=== PATIENT | female | born 1940 | race Caucasian/White ===

== ENCOUNTER → 2016-11-14 | Outpatient (CLI) | payer MEDICARE ==
[~2016-11-14] MED LIST: DENOSUMAB 60 MG/1 ML (PROLIA) CANCER CTR SQ SCH
== END ==
LOC: FS 11:13
PROVIDERS: ATTEND Internal Medicine Hematology & Oncology
DX: C50.511 Malignant neoplasm of lower-outer quadrant of right female breast (principal); D50.9 Iron deficiency anemia, unspecified; M85.89 Other specified disorders of bone density and structure, multiple sites; R29.890 Loss of height; Z17.0 Estrogen receptor positive status [ER+]; Z92.21 Personal history of antineoplastic chemotherapy; Z92.3 Personal history of irradiation; Z79.811 Long term (current) use of aromatase inhibitors
CPT/HCPCS: 96372; 99213

== ENCOUNTER 2017-05-15 10:49 | Outpatient (RCR) | payer MEDICARE ==
[2017-05-15 10:58] LABS: BASOPHILS # (AUTO) 0.1 10^3/uL (0.0-0.1); BASOPHILS % (AUTO) 1 % (0-10); EOSINOPHILS # (AUTO) 0.2 10^3/uL (0.0-0.3); EOSINOPHILS % (AUTO) 3 % (0-10); HEMATOCRIT 44 % (35-52); HEMOGLOBIN 14.6 G/DL (11.5-16.0); LYMPHOCYTES # (AUTO) 1.5 X 10^3 (1.0-4.0); LYMPHOCYTES % (AUTO) 18 % (12-44); MEAN CORPUSCULAR HEMOGLOBIN 29 PG (25-34); MEAN CORPUSCULAR HGB CONC 33 G/DL (32-36); MEAN CORPUSCULAR VOLUME 86 FL (80-99); MONOCYTES # (AUTO) 0.9 X 10^3 (0.0-1.0); MONOCYTES % (AUTO) 11 % (0-12); NEUTROPHILS # (AUTO) 5.4 X 10^3 (1.8-7.8); NEUTROPHILS % (AUTO) 67 % (42-75); PLATELET COUNT 352 10^3/uL (130-400); RED CELL DISTRIBUTION WIDTH 13.8 % (10.0-14.5); WHITE BLOOD COUNT 8.1 10^3/uL (4.3-11.0)
[2017-05-15 11:25] LABS: ALANINE AMINOTRANSFERASE 19 U/L (0-55); ALBUMIN 4.3 GM/DL (3.2-4.5); ALKALINE PHOSPHATASE 79 U/L (40-136); BILIRUBIN,TOTAL 0.6 MG/DL (0.1-1.0); BUN/CREATININE RATIO 19; CALCIUM 10.1 MG/DL (8.5-10.1); CARBON DIOXIDE 30 MMOL/L (21-32); CHLORIDE 98 MMOL/L (98-107); GFR ESTIMATED > 60; GLUCOSE 108 MG/DL (70-105); POTASSIUM 4.2 MMOL/L (3.6-5.0); SODIUM 137 MMOL/L (135-145); TOTAL PROTEIN 7.4 GM/DL (6.4-8.2)
== END 2017-08-13 | disposition home or self-care (01) ==
LOC: ONC 10:49
PROVIDERS: ATTEND Internal Medicine Hematology & Oncology
DX: C50.511 Malignant neoplasm of lower-outer quadrant of right female breast (principal); D50.9 Iron deficiency anemia, unspecified; M85.89 Other specified disorders of bone density and structure, multiple sites; R29.890 Loss of height; Z17.0 Estrogen receptor positive status [ER+]; Z92.21 Personal history of antineoplastic chemotherapy; Z92.3 Personal history of irradiation; Z79.811 Long term (current) use of aromatase inhibitors
CPT/HCPCS: 36415; 80053; 82728; 85025; 96372

== ENCOUNTER 2017-10-11 10:36 | Outpatient (RCR) | payer MEDICARE ==
[2017-10-11 11:16] LABS: BASOPHILS % (AUTO) 1 % (0-10); EOSINOPHILS # (AUTO) 0.2 10^3/uL (0.0-0.3); EOSINOPHILS % (AUTO) 3 % (0-10); HEMATOCRIT 42 % (35-52); HEMOGLOBIN 13.6 G/DL (11.5-16.0); LYMPHOCYTES # (AUTO) 1.2 X 10^3 (1.0-4.0); LYMPHOCYTES % (AUTO) 17 % (12-44); MEAN CORPUSCULAR HEMOGLOBIN 27 PG (25-34); MEAN CORPUSCULAR HGB CONC 32 G/DL (32-36); MEAN CORPUSCULAR VOLUME 83 FL (80-99); MEAN PLATELET VOLUME 9.8 FL (7.4-10.4); MONOCYTES # (AUTO) 0.8 X 10^3 (0.0-1.0); MONOCYTES % (AUTO) 12 % (0-12); NEUTROPHILS # (AUTO) 4.6 X 10^3 (1.8-7.8); NEUTROPHILS % (AUTO) 68 % (42-75); PLATELET COUNT 362 10^3/uL (130-400); RED BLOOD COUNT 5.04 10^6/uL (4.35-5.85); RED CELL DISTRIBUTION WIDTH 15.1 % (10.0-14.5); WHITE BLOOD COUNT 6.8 10^3/uL (4.3-11.0)
[2017-10-11 11:37] LABS: ALBUMIN 4.3 GM/DL (3.2-4.5); BILIRUBIN,TOTAL 0.7 MG/DL (0.1-1.0); CALCIUM 10.3 MG/DL (8.5-10.1); CREATININE SERUM 0.98 MG/DL (0.60-1.30); POTASSIUM 4.1 MMOL/L (3.6-5.0); TOTAL PROTEIN 7.4 GM/DL (6.4-8.2)
[2017-10-17] MEDS ORDERED: DILT120C53 PO (12:48)
[2017-10-17] MEDS ORDERED: METF500T5 PO (12:48)
[2017-10-17] MEDS ORDERED: FLUO20CA42 PO (12:48)
[2017-10-17] MEDS ORDERED: PRAV20TA3 PO (12:48)
[2017-10-17] MEDS ORDERED: BENA40TA5 PO (12:48)
[2017-10-17] MEDS ORDERED: CLON0.1T PO (12:48)
[2017-10-17] MEDS ORDERED: APIX5TAB PO (12:53)
[2017-10-17] MEDS ORDERED: LETR2.5T5 PO (12:53)
[2017-10-17] MEDS ORDERED: MULT-35 PO (12:53)
[2017-10-17] MEDS ORDERED: DENO60DI SQ (12:53)
[2017-10-17] MEDS ORDERED: CALC600T12 PO (12:53)
[2017-10-17] MEDS ORDERED: LORA10TA76 PO (12:53)
[2017-10-17] MEDS ORDERED: CHOL10007 PO (12:53)
[2017-10-17] MEDS ORDERED: RT-ALBUINH IH (12:57)
[2017-11-08] MEDS ORDERED: FERRIC CARBOXYMALTOSE (CANCER) 750 MG in NS (IVPB) CANCER CENTER 250 ML IV SCH (08:30)
[2017-11-08] MEDS ORDERED: DENOSUMAB 60 MG/1 ML (PROLIA) CANCER CTR SQ SCH (08:30)
== END 2018-01-09 | disposition home or self-care (01) ==
LOC: ONC 10:36
PROVIDERS: ATTEND Internal Medicine Hematology & Oncology
DX: C50.511 Malignant neoplasm of lower-outer quadrant of right female breast (principal); D50.9 Iron deficiency anemia, unspecified; M85.89 Other specified disorders of bone density and structure, multiple sites; I48.91 Unspecified atrial fibrillation; R06.09 Other forms of dyspnea; R29.890 Loss of height; Z17.0 Estrogen receptor positive status [ER+]; Z92.21 Personal history of antineoplastic chemotherapy; Z92.3 Personal history of irradiation; Z79.811 Long term (current) use of aromatase inhibitors
CPT/HCPCS: 36415; 80053; 82728; 85025; 93005; 99213

== ENCOUNTER → 2017-10-11 | Outpatient (CLI) | payer MEDICARE, BC ==
[~2017-10-11] MED LIST changes: +APIX5TAB PO; +BNZ40T PO; +CALC600T12 PO; +CHOL10007 PO; +CLON0.1T PO; +DENO60DI SQ; -DENOSUMAB 60 MG/1 ML (PROLIA) CANCER CTR SQ SCH; +DILT120C53 PO; +FLUO20CA42 PO; +LETR2.5T5 PO; +LORA10TA76 PO; +METF500T5 PO; +MULT-35 PO; +PRAV20TA3 PO; +RT-ALBUINH IH
--- NOTE | 2017-10-11 12:25 | Diagnostic Imaging Report ---
STUDY PERFORMED: Dual energy radiographic absorptiometry (DXA) of the lumbar spine and bilateral hips. HISTORY: 77 year-old postmenopausal Female in need of bone mineral density screening. PREVIOUS STUDIES: 08/19/2015. FINDINGS: Examination of transmission images of the lumbar spine and hip demonstrates degenerative changes. REGION L2-L4 PA total: Bone mineral density g/cm2 1.066 SD from young normal (T) -1.1 SD from age-matched control (Z) 0.0 There has been an 11.2% increase in bone mineral density since the prior study. Right femoral neck: Bone mineral density g/cm2 0.769 SD from young normal (T) -1.9 SD from age-matched control (Z) -0.4 Right hip total: Bone mineral density g/cm2 0.823 SD from young normal (T) -1.5 SD from age-matched control (Z) -0.1 Left femoral neck: Bone mineral density g/cm2 0.882 SD from young normal (T) -1.1 SD from age-matched control (Z) 0.4 Left hip total: Bone mineral density g/cm2 0.920 SD from young normal (T) -0.7 SD from age-matched control (Z) 0.6 There has been a 4.8% increase in the mean bone mineral density of the bilateral hips since the prior study. Although not all clinical information was available, according to the FRAX WHO fracture risk assessment tool, for an untreated patient, there is a 13 percent 10-year risk of major osteoporotic fracture and a 3.1 percent 10-year risk of hip fracture. IMPRESSION: 1. Osteopenia. 2. There has been an interval increase in bone mineral density since the prior study. Reductions in bone density to 2.5 or more standard deviations below those of young normal subjects is considered to represent osteoporosis in the absence of other causes of bone loss. Reduction in bone density to 1-2.5 standard deviations below those of young normal subjects fulfills the definition of osteopenia. (WHO Tech Rep Ser 1994; No. 843.6; J Bone Madeline Res 1994; 9:1137). Dictated by: Dictated on workstation # [id number]
== END ==
LOC: RAD 05-16 08:33
PROVIDERS: ATTEND Internal Medicine Hematology & Oncology
DX: Z13.820 Encounter for screening for osteoporosis (principal); C50.111 Malignant neoplasm of central portion of right female breast; M85.88 Other specified disorders of bone density and structure, other site; Z78.0 Asymptomatic menopausal state
CPT/HCPCS: 77080

== ENCOUNTER → 2017-10-12 | Outpatient (CLI) | payer MEDICARE, BC | LOC: CARD 10:54 | PROVIDERS: ATTEND Internal Medicine Cardiovascular Disease | DX: I48.91 Unspecified atrial fibrillation (principal); E11.9 Type 2 diabetes mellitus without complications; E78.00 Pure hypercholesterolemia, unspecified; I10 Essential (primary) hypertension; I08.3 Combined rheumatic disorders of mitral, aortic and tricuspid valves; I27.20 Pulmonary hypertension, unspecified | CPT/HCPCS: 36415; 84443; 93306 ==

== ENCOUNTER 2017-10-17 11:43 | Day surgery (SDC) | payer MEDICARE, BC ==
[~2017-10-17] VITALS: Ht 160 cm; Wt 83.5 kg
[2017-10-17] VITALS (10 sets, daily range): BP systolic 150–190; BP diastolic 74–104
[2017-10-17] MEDS ORDERED: NS IV 1000 ML 3,000 ML ONE (11:51)
[2017-10-17] MEDS ORDERED: HEParin 1000 UNIT/ML (10ML VIAL) FOR BOLUS ONE (11:53)
[2017-10-17] MEDS ORDERED: NS IV 1000 ML 1,000 ML IV SCH ×2 (12:29→14:57)
[2017-10-17 12:38] LABS: HEMOGLOBIN 14.2 G/DL (11.5-16.0); MEAN PLATELET VOLUME 10.2 FL (7.4-10.4); RED BLOOD COUNT 5.21 10^6/uL (4.35-5.85); RED CELL DISTRIBUTION WIDTH 15.2 % (10.0-14.5); WHITE BLOOD COUNT 7.9 10^3/uL (4.3-11.0)
[2017-10-17] MEDS ORDERED: BNZ40T PO (12:48)
[2017-10-17] MEDS ORDERED: DILT120C53 PO (12:48)
[2017-10-17] MEDS ORDERED: FLUO20CA42 PO (12:48)
[2017-10-17] MEDS ORDERED: METF500T5 PO (12:48)
[2017-10-17] MEDS ORDERED: PRAV20TA3 PO (12:48)
[2017-10-17] MEDS ORDERED: CLON0.1T PO (12:48)
[2017-10-17 12:53] LABS: INR 1.1 (0.8-1.4)
[2017-10-17] MEDS ORDERED: DENO60DI SQ (12:53)
[2017-10-17] MEDS ORDERED: LORA10TA76 PO (12:53)
[2017-10-17] MEDS ORDERED: APIX5TAB PO (12:53)
[2017-10-17] MEDS ORDERED: CALC600T12 PO (12:53)
[2017-10-17] MEDS ORDERED: LETR2.5T5 PO (12:53)
[2017-10-17] MEDS ORDERED: MULT-35 PO (12:53)
[2017-10-17] MEDS ORDERED: CHOL10007 PO (12:53)
[2017-10-17] MEDS ORDERED: RT-ALBUINH IH (12:57)
[2017-10-17 12:59] LABS: ALANINE AMINOTRANSFERASE 18 U/L (0-55); ALBUMIN 4.6 GM/DL (3.2-4.5); ALKALINE PHOSPHATASE 91 U/L (40-136); BUN/CREATININE RATIO 20; CALCIUM 9.6 MG/DL (8.5-10.1); CARBON DIOXIDE 24 MMOL/L (21-32); CHLORIDE 105 MMOL/L (98-107); CHOLESTEROL 163 MG/DL (< 200); CREATININE SERUM 0.85 MG/DL (0.60-1.30); GFR ESTIMATED > 60; GLUCOSE 135 MG/DL (70-105); HDL CHOLESTEROL 71 MG/DL (40-60); POTASSIUM 4.1 MMOL/L (3.6-5.0); SODIUM 138 MMOL/L (135-145); TRIGLYCERIDES 109 MG/DL (<150); VLDL CHOLESTEROL 22 MG/DL (5-40)
--- NOTE | 2017-10-17 13:29 | Diagnostic Imaging Report ---
INDICATION: Preop for heart catheterization. TIME OF EXAM: 12:58 p.m. No prior studies are available for comparison. The heart is enlarged. Lungs appear to be clear. No infiltrate or failure is detected. No effusion or pneumothorax is seen. IMPRESSION: Mild cardiomegaly. No acute features detected. Dictated by: Dictated on workstation # [id number]
[2017-10-17] MEDS ORDERED: MIDAZOLAM 5 MG/5 ML (VERSED) VIAL ONE (13:56)
[2017-10-17] MEDS ORDERED: fentaNYL INJECTION 100 MCG/2 ML AMP ONE (13:56)
[2017-10-17] MEDS ORDERED: LIDOCAINE 1% INJ 20 ML 20 ML VIAL ONE (14:00)
--- NOTE | 2017-10-17 14:26 | Cardiac Procedure Note-CS/ASA ---
Pre-Procedure Note Pre-Op Procedure Note H&P Reviewed The H&P was reviewed, patient examined and no changes noted. Date H&P Reviewed: October 17, 2017 Time H&P Reviewed: 14: Conscious Sedation Pre-Proced Time Reviewed: 14: ASA Class: 3 Airway Mallampati Classification: ([place] appropriate class) I. II. III, IV Lungs Heart ASA score ASA 1: a normal healthy patient ASA 2: a patient with a mild systemic disease (mid diabetes, controlled hypertension, obesity x ASA 3: a patient with a severe systemic disease that limits activity (angina , COPD, prior Myocardial infarction) ASA 4: a patient with an incapacitating disease that is a constant threat to life (CHF, renal failure) ASA 5: a moribund patient not expected to survive 24 hrs. (ruptured aneurysm) ASA 6: a declared brain patient whose organs are being harvested. For emergent operations, add the letter E after the classification Grade 3 Sedation Plan: Analgesia, Amnesia, Plan communicated to team members, Discussed options with patient/fam, Discussed risks with patient/fam Note The patient is an appropriate candidate to undergo the planned procedure, sedation, and anesthesia. The patient immediately re-assessed prior to indication. DAVID SMITH MD October 17, 2017 14:26
--- NOTE | 2017-10-17 14:59 | Discharge Inst-Post CATH ---
Discharge Inst-CATH Post Cardiac Cath D/C Inst Follow Up/Plan Hold metformin for [address] Bravo's office in 2-4 weeks CARDIAC CATH DISCHARGE INSTRUCTIONS *Hold Metformin for 48 hours post heart cath. ACTIVITY * Go Home directly and rest. * Limit activity of the leg (or wrist if it was used) for 7 days including aerobics, swimming, jogging, bicycling, etc. * Restrict stair-climbing for 7 days if possible, if not, climb up with your non -cath leg, then bring together on the same step. * Avoid lifting, pushing, pulling or excessive movement of the affected extremity for 7 days. * Customary sexual activity may be resumed after 2 days-use caution not to use a position that strains or causes pain to the affected extremity. * No driving for 24 hours. * NO SMOKING. * Avoid straining for bowel movements for 7 days. * Gentle walking on level ground is allowed. * Returning to work will depend on the type of procedure and the results. Your doctor will discuss this with you. CALL YOUR DOCTOR FOR ANY OF THE FOLLOWING: *If bleeding from the puncture site occurs- Apply gentle pressure to site with clean cloth and call your doctor or EMS. * If a knot or lump forms under the skin, increases in size, or causes pain. * If bruising appears to be worsening or moving further down your leg instead of disappearing. * Temperature above 101 F. CARE OF YOUR GROIN INCISION; * Bruising or purple discoloration of the skin near the puncture site is common. * You may shower only, no bathtub bathing for 5 days. Be careful to avoid slipping as your leg may feel stiff. * If a closure device was used on your femoral artery, please see the attached guide regarding care of the device and your leg. * REMOVE the dressing from your groin the next day after your procedure in the shower. CARE OF YOUR WRIST INCISION; * Bruising or purple discoloration of the skin near the puncture site is common. * You may shower. * DO NOT submerge wrist. * Remove dressing in 24 hours. DAVID BRAVO MD October 17, 2017 14:59
[2017-10-17] MEDS ORDERED: PATIENT MAY USE OWN MEDS, ALL PO SCH (15:00)
--- NOTE | 2017-10-17 15:08 | Cardiac Cath Report ---
Cardiac Cath Report Physician (s)/Process Validation Engineer (s) Physician DAVID SMITH MD Pre-Procedure Diagnosis Pre-Procedure Diagnosis: Coronary artery disease, mitral regurgitation Post-Procedure Note Procedure Start Date: October 17, 2017 Name of Procedure: Right and left heart catheterization Aortic arch angiogram Findings/Procedure Note Sheath was placed in the vein. [place] larisa catheter advanced to the right atrium, right ventricle, main pulmonary artery, wedge position. Pressure was measured. Oxygen Saturation measured. Cardiac output was calculated using thermodilution and nimco equation. 6 Kh[place] sheath was placed in the right femoral artery, combination of right and left Renae catheter were used to access the right and left coronary system , angiogram was done, pigtail catheter was advanced to the left ventricular cavity, left ventriculogram was done, pullback LV to aorta was done. Heavy consultation noted in the aortic arch, aortic arch angiogram was done. Arterial sheath was removed with closure device, venous sheath was removed with manual pressure Hemodynamics RA 19 mmHg RV 61/17, end-diastolic pressure of 17 PA 59/35 mean of 43 PCWP 33 mmHg LV 140/24, end-diastolic pressure of 24 Aorta 148/89 mean of 116 O2 Sat HRA 57.8 LRA 57.8 RV 57.0 PA 57.6 PCWP 57.1 FA 94 Cardiac Output TD CO 3.33, NIMCO CO 2.68 TD CI 1.78, NIMCO CI 1.43 Anatomy Left main coronary artery has mild disease Left anterior descending artery has severe disease at the midportion Left circumflex artery has mild disease nonobstructive disease Right coronary artery has severe disease at the mid and distal portion, dominant artery Left ventriculogram was done in the right anterior oblique position, left ventricle is normal in size, patient is in atrial fibrillation, systolic function is in the lower normal limits and estimated ejection fraction 45-50 percent with severe mitral regurgitation and enlarged left atrium Aortic arch angiogram done in the left anterior oblique position, atherosclerotic disease was noted, origin of the great neck vessels appeared normal, no dissection or aneurysm Conclusion 1. Severe two-vessel coronary artery disease 2. Severe mitral regurgitation, heavily calcified mitral annulus 3. Normal left ventricular size, slightly reduced left ventricular systolic function with ejection fraction 45-50 percent 4. 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
--- OUTSIDE RECORDS SUMMARY | 2017-10-17 18:42 | XMS REPORT | Continuity of Care Document ---
Author Author [facility] Organization [facility] Address Unknown Phone Unavailable Allergies Active Description Code Type Severity Reaction Onset Reported/Identified Relationship to Patient Clinical Status Yes NO NAME AVAILABLE 08545 DRUG N/ A N/A Yes PERCOCET [id number] Drug Allergy N/A vomiting Yes NKA Drug N/A N/A Yes NKA Drug N/A N/A Yes aspirin [id number] Drug Allergy Moderate N/A 07/20/2005 Yes Penicillins [id number] Drug Allergy Moderate N/A 07/20/2005 Medications Medication Packaging Start Date Stop Date Route Dosage Sig WELLBUTRIN XL 02/12/2015 02/12/2015 ORAL [id number] daily Problems Date Dx Coded Attending Type Code Diagnosis Diagnosed By 10/13/2013 SHREYAS CLIFFORD Ot 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 10/13/2013 SHREYAS CLIFFORD Ot V58.0 ENCOUNTER FOR RADIOTHERAPY 05/01/2014 SHREYAS CLIFFORD Ot 174.9 05/01/2014 SHREYAS CLIFFORD N Ot 733.90 05/01/2014 SHREYAS CLIFFORD N Ot V15.3 05/01/2014 SHREYAS CLIFFORD N Ot V58.69 05/01/2014 DARRINSHREYAS BAEZA N Ot V86.0 05/01/2014 DARRINSHREYAS BAEZA N Ot V86.1 05/01/2014 DARRINSHREYAS BAEZA N Ot V87.41 2014 DARRINSHREYAS BAEZA N Ot 174.9 2014 DARRINSHREYAS BAEZA N Ot 733.90 2014 SHREYAS CLIFFORD N Ot V15.3 2014 DARRINSHREYAS BAEZA N Ot V58.69 2014 DARRINSHREYAS BAEZA N Ot V86.0 2014 DARRINSHREYAS BAEZA N Ot V86.1 2014 DARRINSHREYAS BAEZA N Ot V87.41 08/06/2014 DARRIN, BOBAN N Ot 174.9 08/06/2014 DARRIN, BOBAN N Ot 733.90 08/06/2014 DARRIN, BOBAN N Ot V15.3 08/06/2014 DARRIN, BOBAN N Ot V58.69 08/06/2014 DARRIN, BOBAN N Ot V86.0 08/06/2014 DARRIN, BOBAN N Ot V86.1 08/06/2014 DARRIN, BOBAN N Ot V87.41 12/10/2014 DARRIN, BOBAN N Ot 174.9 12/10/2014 DARRIN, BOBAN N Ot 280.9 12/10/2014 DARRIN, BOBAN N Ot 733.90 12/10/2014 DARRIN, BOBAN N Ot V15.3 12/10/2014 DARRIN, BOBAN N Ot V58.69 12/10/2014 DARRIN, ANGELLAAN N Ot V86.0 12/10/2014 DARRIN, ANGELLAAN N Ot V86.1 12/10/2014 DARRIN, BOBAN N Ot V87.41 12/11/2014 DARRIN, BOBAN N Ot 174.9 12/11/2014 DARRIN, BOBAN N Ot 280.9 12/11/2014 DARRIN, BOBAN N Ot 733.90 12/11/2014 DARRIN, BOBAN N Ot V15.3 12/11/2014 DARRIN, BOBAN N Ot V58.69 12/11/2014 DARRIN, SHREYAS N Ot V86.0 12/11/2014 DARRIN, ANGELLAAN N Ot V86.1 12/11/2014 DARRIN, BOBAN N Ot V87.41 03/02/2015 DARRIN, BOBAN N Ot 174.9 03/02/2015 DARRIN, BOBAN N Ot 280.9 03/02/2015 DARRIN, BOBAN N Ot 733.90 03/02/2015 DARRIN, BOBAN N Ot V15.3 03/02/2015 DARRIN, BOBAN N Ot V58.69 03/02/2015 DARRIN, BOBAN N Ot V86.0 03/10/2015 DARRIN, BOBAN N Ot 174.9 03/10/2015 DARRIN, BOBAN N Ot 280.9 03/10/2015 DARRIN, BOBAN N Ot 733.90 03/10/2015 DARRIN, SHREYAS N Ot V15.3 03/10/2015 DARRIN, SHREYAS N Ot V58.69 03/10/2015 DARRIN, SHREYAS N Ot V86.0 06/08/2015 DARRIN, SHREYAS N Ot C50.911 06/08/2015 DARRIN, SHREYAS N Ot C50.912 06/08/2015 DARRIN, SHREYAS N Ot D50.9 06/08/2015 DARRIN, SHREYAS N Ot M85.89 06/08/2015 DARRIN, SHREYAS N Ot Z17.0 06/08/2015 DARRIN, SHREYAS N Ot Z79.811 06/08/2015 DARRIN, SHREYAS N Ot Z92.21 06/08/2015 DARRIN, SHREYAS N Ot Z92.3 06/09/2015 DARRIN, SHREYAS N Ot C50.911 06/09/2015 DARRIN, SHREYAS N Ot C50.912 06/09/2015 DARRIN, SHREYAS N Ot D50.9 06/09/2015 DARRIN, SHREYAS N Ot M85.89 06/09/2015 DARRIN, SHREYAS N Ot Z17.0 06/09/2015 DARRIN, SHREYAS N Ot Z79.811 06/09/2015 DARRIN, SHREYAS N Ot Z92.21 06/09/2015 DARRIN, SHREYAS N Ot Z92.3 08/19/2015 Ot 403.90 08/19/2015 Ot 585.3 08/19/2015 Ot V10.3 08/19/2015 Ot V58.69 08/19/2015 Ot V67.1 08/19/2015 Ot V67.2 08/19/2015 Ot V10.3 08/19/2015 Ot V58.69 08/19/2015 Ot V67.1 08/19/2015 Ot V67.2 08/19/2015 Ot 174.9 08/19/2015 Ot V10.3 08/19/2015 Ot V58.69 08/19/2015 Ot V67.1 08/19/2015 Ot V67.2 08/19/2015 DARRIN, SHREYAS N Ot 611.72 08/19/2015 DARRIN, SHREYAS N Ot V10.3 08/19/2015 SHREYAS CLIFFORD N Ot V58.69 08/19/2015 SHREYAS CLIFFORD N Ot V67.1 08/19/2015 SHREYAS CLIFFORD N Ot V67.2 08/19/2015 LUCA MLEENDREZ REMOTE MORTGAGE UNDERWRITER Ot 174.9 08/19/2015 SHREYAS CLIFFORD N Ot 174.9 08/19/2015 SHREYAS CLIFFORD N Ot 716.99 08/19/2015 SHREYAS CLIFFORD N Ot V15.3 08/19/2015 SHREYAS CLIFFORD N Ot V58.69 08/19/2015 SHREYAS CLIFFORD N Ot V86.0 08/19/2015 SHREYAS CLIFFORD N Ot V86.1 08/19/2015 SHREYAS CLIFFORD N Ot V87.41 08/19/2015 MELENDREZLUCA Trevino S REMOTE MORTGAGE UNDERWRITER Ot 174.9 08/19/2015 PARVIN LUCA S REMOTE MORTGAGE UNDERWRITER Ot V15.3 08/19/2015 MELENDREZ, LUCA S REMOTE MORTGAGE UNDERWRITER Ot V16.3 08/19/2015 MELENDREZ LUCA S REMOTE MORTGAGE UNDERWRITER Ot V16.41 08/19/2015 MELENDREZ LUCA S REMOTE MORTGAGE UNDERWRITER Ot V58.69 08/19/2015 MELENDREZ LUCA S REMOTE MORTGAGE UNDERWRITER Ot V86.0 08/19/2015 MELENDREZ LUCA S REMOTE MORTGAGE UNDERWRITER Ot V86.1 08/19/2015 MELENDREZ LUCA S REMOTE MORTGAGE UNDERWRITER Ot V87.41 08/19/2015 MELENDREZ LUCA S REMOTE MORTGAGE UNDERWRITER Ot 174.9 08/19/2015 MELENDREZ, LUCA S REMOTE MORTGAGE UNDERWRITER Ot 780.4 08/19/2015 MELENDREZ LUCA S REMOTE MORTGAGE UNDERWRITER Ot 174.9 08/19/2015 MELENDREZ, LUCA S REMOTE MORTGAGE UNDERWRITER Ot V15.3 08/19/2015 MELENDREZ, BEAUAH S REMOTE MORTGAGE UNDERWRITER Ot V16.3 08/19/2015 MELENDREZ, BEAUAH S REMOTE MORTGAGE UNDERWRITER Ot V16.41 08/19/2015 MELENDREZ, BEAUAH S REMOTE MORTGAGE UNDERWRITER Ot V58.69 08/19/2015 MELENDREZ, BEAUAH S REMOTE MORTGAGE UNDERWRITER Ot V86.0 08/19/2015 MELENDREZ, BEAUAH S REMOTE MORTGAGE UNDERWRITER Ot V86.1 08/19/2015 MELENDREZ LUCA S REMOTE MORTGAGE UNDERWRITER Ot V87.41 08/19/2015 MELENDREZ, HILAH S REMOTE MORTGAGE UNDERWRITER Ot 174.9 08/19/2015 LUCA MELENDREZ REMOTE MORTGAGE UNDERWRITER Ot 733.90 08/19/2015 LUCA MELENDREZ REMOTE MORTGAGE UNDERWRITER Ot V49.81 08/19/2015 DARRIN, BOBAN N Ot 174.9 08/19/2015 DARRIN, BOBAN N Ot V15.3 08/19/2015 DARRIN, BOBAN N Ot V16.3 08/19/2015 DARRIN, BOBAXEL N Ot V16.41 08/19/2015 DARRIN, BOBAXEL N Ot V58.69 08/19/2015 DARRIN, BOBAXEL N Ot V87.41 08/19/2015 DARRIN, BOBAN N Ot 174.9 08/19/2015 DARRIN, ANGELLAAN N Ot 780.4 08/19/2015 DARRIN, BOBAXEL N Ot V15.3 08/19/2015 DARRIN, BOBAN N Ot V16.3 08/19/2015 DARRIN, BOBAN N Ot V16.41 08/19/2015 DARRIN, BOBAN N Ot V58.69 08/19/2015 DARRIN, BOBAN N Ot V86.0 08/19/2015 DARRIN, BOBAN N Ot V86.1 08/19/2015 DARRIN, BOBAN N Ot V87.41 08/19/2015 DARRIN, BOBAN N Ot 174.5 08/19/2015 DARRIN, BOBAN N Ot 174.9 08/19/2015 DARRIN, BOBAN N Ot V15.3 08/19/2015 DARRIN, BOBAN N Ot V16.3 08/19/2015 DARRIN, BOBAN N Ot V16.41 08/19/2015 DARRIN, BOBAN N Ot V58.69 08/19/2015 DARRIN, BOBAN N Ot V87.41 08/19/2015 DARRIN, BOBAN N Ot 174.9 08/19/2015 DARRIN, BOBAN N Ot 733.90 08/19/2015 DARRIN, BOBAN N Ot V15.3 08/19/2015 DARRIN, BOBAN N Ot V58.69 08/19/2015 DARRIN, BOBAN N Ot V86.0 08/19/2015 DARRIN, BOBAN N Ot V86.1 08/19/2015 DARRIN, BOBAN N Ot V87.41 08/19/2015 DARRIN, BOBAN N Ot 174.9 08/19/2015 DARRIN, BOBAN N Ot 733.90 08/19/2015 DARRIN, BOBAN N Ot V15.3 08/19/2015 DARRIN, BOBAN N Ot V58.69 08/19/2015 DARRIN, BOBAN N Ot V86.0 08/19/2015 DARIRN, BOBAN N Ot V86.1 08/19/2015 DARRIN, BOBAN N Ot V87.41 08/19/2015 DARRIN, BOBAN N Ot 174.9 08/19/2015 DARRIN, BOBAN N Ot 280.9 08/19/2015 DARRIN, BOBAN N Ot 733.90 08/19/2015 DARRIN, ANGELLAAXEL N Ot V15.3 08/19/2015 DARRIN, SHREYAS N Ot V58.69 08/19/2015 DARRIN, ANGELLAAXEL N Ot V86.0 08/19/2015 DARRIN, ANGELLAAXEL N Ot V86.1 08/19/2015 DARRIN, SHREYAS N Ot V87.41 08/19/2015 DARRIN, ANGELLAAN N Ot 174.9 08/19/2015 DARRIN, ANGELLAAN N Ot 280.9 08/19/2015 DARRIN, ANGELLAAN N Ot 733.90 08/19/2015 DARRIN, SHREYAS N Ot V15.3 08/19/2015 DARRIN, SHREYAS N Ot V58.69 08/19/2015 DARRIN, SHREYAS N Ot V86.0 08/19/2015 DARRIN, SHREYAS N Ot C50.911 08/19/2015 DARRIN, BOBAN N Ot C50.912 08/19/2015 DARRIN, BOBAN N Ot D50.9 08/19/2015 DARRIN, ANGELLAAN N Ot M85.89 08/19/2015 DARRIN, ANGELLAAN N Ot Z17.0 08/19/2015 DARRIN, BOBAN N Ot Z79.811 08/19/2015 DARRIN, BOBAN N Ot Z92.21 08/19/2015 DARRIN, ANGELLAAN N Ot Z92.3 09/09/2015 DARRIN, ANGELLAAN N Ot R29.890 09/21/2015 DARRIN, BOBAN N Ot C50.511 09/21/2015 SHREYAS CLIFFORD N Ot D50.9 09/21/2015 DARRINSHREYAS BAEZA N Ot M85.89 09/21/2015 DARRINSHREYAS BAEZA N Ot Z17.0 09/21/2015 SHREYAS CLIFFORD N Ot Z79.811 09/21/2015 DARRINSHREYAS BAEZA N Ot Z92.21 09/21/2015 DARRINSHREYAS BAEZA N Ot Z92.3 09/30/2015 DARRINSHREYAS BAEZA N Ot C50.511 09/30/2015 DARRINSHREYAS BAEZA N Ot D50.9 09/30/2015 DARRINSHREYAS BAEZA N Ot M85.89 09/30/2015 DARRINSHREYAS BAEZA N Ot Z17.0 09/30/2015 DARRINSHREYAS BAEZA N Ot Z79.811 09/30/2015 DARRINSHREYAS BAEZA N Ot Z92.21 09/30/2015 DARRINSHREYAS BAEZA N Ot Z92.3 01/06/2016 SHREYAS CLIFFORD N Ot 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 01/06/2016 SHREYAS CLIFFORD N Ot D50.9 IRON DEFICIENCY ANEMIA, UNSPECIFIED 01/06/2016 SHREYAS CLIFFORD N Ot M85.89 OTH DISRD OF BONE DENSITY AND STRUCTURE, 01/06/2016 SHREYAS CLIFFORD N Ot Z17.0 ESTROGEN RECEPTOR POSITIVE STATUS [ER+] 01/06/2016 SHREYAS CLIFFORD N Ot Z79.811 FPC (CURRENT) USE OF AROMATASE INH 01/06/2016 SHREYAS CLIFFORD N Ot Z92.21 PERSONAL HISTORY OF ANTINEOPLASTIC CHEMO 01/06/2016 SHREYAS CLIFFORD N Ot Z92.3 PERSONAL HISTORY OF IRRADIATION 01/12/2016 SHREYAS CLIFFORD N Ot 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 01/12/2016 SHREYAS CLIFFORD N Ot D50.9 IRON DEFICIENCY ANEMIA, UNSPECIFIED 01/12/2016 SHREYAS CLIFFORD N Ot M85.89 OTH DISRD OF BONE DENSITY AND STRUCTURE, 01/12/2016 SHREYAS CLIFFORD N Ot Z17.0 ESTROGEN RECEPTOR POSITIVE STATUS [ER+] 01/12/2016 SHREYAS CLIFFORD N Ot 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 INH 01/12/2016 SHREYAS CLIFFORD Ot Z92.21 PERSONAL HISTORY OF ANTINEOPLASTIC CHEMO 01/12/2016 SHREYAS CLIFFORD Ot Z92.3 PERSONAL HISTORY OF IRRADIATION 04/09/2016 W 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 04/09/2016 W H52.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, bilateral 05/24/2016 SHREYAS CLIFFORD Ot 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 05/24/2016 SHREYAS CLIFFORD Ot D50.9 IRON DEFICIENCY ANEMIA, UNSPECIFIED 05/24/2016 SHREYAS CLIFFORD Ot M85.89 OTH DISRD OF BONE DENSITY AND STRUCTURE, 05/24/2016 SHREYAS CLIFFORD Ot Z17.0 ESTROGEN RECEPTOR POSITIVE STATUS [ER+] 05/24/2016 SHREYAS CLIFFORD N Ot 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 INH 05/24/2016 SHREYAS CLIFFORD Ot Z92.21 PERSONAL HISTORY OF ANTINEOPLASTIC CHEMO 05/24/2016 SHREYAS CLIFFORD Ot Z92.3 PERSONAL HISTORY OF IRRADIATION 06/06/2016 SHREYAS CLIFFORD Ot 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 06/06/2016 SHREYAS CLIFFORD N Ot D50.9 IRON DEFICIENCY ANEMIA, UNSPECIFIED 06/06/2016 SHREYAS CLIFFORD N Ot M85.89 OTH DISRD OF BONE DENSITY AND STRUCTURE, 06/06/2016 SHREYAS CLIFFORD Ot Z17.0 ESTROGEN RECEPTOR POSITIVE STATUS [ER+] 06/06/2016 SHREYAS CLIFFORD Ot 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 INH 06/06/2016 SHREYAS CLIFFORD N Ot Z92.21 PERSONAL HISTORY OF ANTINEOPLASTIC CHEMO 06/06/2016 SHREYAS CLIFFORD N Ot Z92.3 PERSONAL HISTORY OF IRRADIATION 06/14/2016 SHREYAS CLIFFORD Ot 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 06/14/2016 SHREYAS CLIFFORD Ot D50.9 IRON DEFICIENCY ANEMIA, UNSPECIFIED 06/14/2016 SHREYAS CLIFFORD Ot M85.89 OTH DISRD OF BONE DENSITY AND STRUCTURE, 06/14/2016 SHREYAS CLIFFORD Ot Z17.0 ESTROGEN RECEPTOR POSITIVE STATUS [ER+] 06/14/2016 SHREYAS CLIFFORD N Ot 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 INH 06/14/2016 SHREYAS CLIFFORD N Ot Z92.21 PERSONAL HISTORY OF ANTINEOPLASTIC CHEMO 06/14/2016 SHREYAS CLIFFORD N Ot Z92.3 PERSONAL HISTORY OF IRRADIATION 06/15/2016 SHREYAS CLIFFORD Ot 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 06/15/2016 SHREYAS CLIFFORD N Ot D50.9 IRON DEFICIENCY ANEMIA, UNSPECIFIED 06/15/2016 SHREYAS CLIFFORD N Ot M85.89 OTH DISRD OF BONE DENSITY AND STRUCTURE, 06/15/2016 SHREYAS CLIFFORD N Ot Z17.0 ESTROGEN RECEPTOR POSITIVE STATUS [ER+] 06/15/2016 SHREYAS CLIFFORD N Ot Z79.811 FPC (CURRENT) USE OF AROMATASE INH 06/15/2016 SHREYAS CLIFFORD N Ot Z92.21 PERSONAL HISTORY OF ANTINEOPLASTIC CHEMO 06/15/2016 SHREYAS CLIFFORD N Ot Z92.3 PERSONAL HISTORY OF IRRADIATION 06/21/2016 SHREYAS CLIFFORD N Ot 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 06/21/2016 SHREYAS CLIFFORD N Ot D50.9 IRON DEFICIENCY ANEMIA, UNSPECIFIED 06/21/2016 SHREYAS CLIFFORD N Ot M85.89 OTH DISRD OF BONE DENSITY AND STRUCTURE, 06/21/2016 SHREYAS CLIFFORD N Ot Z17.0 ESTROGEN RECEPTOR POSITIVE STATUS [ER+] 06/21/2016 SHREYAS CLIFFORD N Ot Z79.811 FPC (CURRENT) USE OF AROMATASE INH 06/21/2016 SHREYAS CLIFFORD N Ot Z92.21 PERSONAL HISTORY OF ANTINEOPLASTIC CHEMO 06/21/2016 SHREYAS CLIFFORD N Ot Z92.3 PERSONAL HISTORY OF IRRADIATION 11/16/2016 SHREYAS CLIFFORD N Ot 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 11/16/2016 SHREYAS CLIFFORD N Ot D50.9 IRON DEFICIENCY ANEMIA, UNSPECIFIED 11/16/2016 SHREYAS CLIFFORD N Ot M85.89 OTH DISRD OF BONE DENSITY AND STRUCTURE, 11/16/2016 SHREYAS CLIFFORD [place] Ot R29.890 LOSS OF HEIGHT 11/16/2016 SHREYAS CLIFFORD Ot Z17.0 ESTROGEN RECEPTOR POSITIVE STATUS [ER+] 11/16/2016 SHREYAS CLIFFORD N Ot Z79.811 FPC (CURRENT) USE OF AROMATASE INH 11/16/2016 SHREYAS CLIFFORD N Ot Z92.21 PERSONAL HISTORY OF ANTINEOPLASTIC CHEMO 11/16/2016 SHREYAS CLIFFORD Ot Z92.3 PERSONAL HISTORY OF IRRADIATION 12/05/2016 SHREYAS CLIFFORD Ot 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 12/05/2016 SHREYAS CLIFFORD N Ot D50.9 IRON DEFICIENCY ANEMIA, UNSPECIFIED 12/05/2016 SHREYAS CLIFFORD N Ot M85.89 OTH DISRD OF BONE DENSITY AND STRUCTURE, 12/05/2016 SHREYAS CLIFFORD Ot R29.890 LOSS OF HEIGHT 12/05/2016 SHREYAS CLIFFORD N Ot Z17.0 ESTROGEN RECEPTOR POSITIVE STATUS [ER+] 12/05/2016 SHREYAS CLIFFORD N Ot 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 INH 12/05/2016 SHREYAS CLIFFORD N Ot Z92.21 PERSONAL HISTORY OF ANTINEOPLASTIC CHEMO 12/05/2016 SHREYAS CLIFFORD N Ot Z92.3 PERSONAL HISTORY OF IRRADIATION 12/13/2016 SHREYAS CLIFFORD N Ot 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 12/13/2016 SHREYAS CLIFFORD N Ot D50.9 IRON DEFICIENCY ANEMIA, UNSPECIFIED 12/13/2016 SHREYAS CLIFFORD N Ot M85.89 OTH DISRD OF BONE DENSITY AND STRUCTURE, 12/13/2016 SHREYAS CLIFFORD Ot R29.890 LOSS OF HEIGHT 12/13/2016 SHREYAS CLIFFORD Ot Z17.0 ESTROGEN RECEPTOR POSITIVE STATUS [ER+] 12/13/2016 SHREYAS CLIFFORD N Ot Z79.811 FPC (CURRENT) USE OF AROMATASE INH 12/13/2016 SHREYAS CLIFFORD N Ot Z92.21 PERSONAL HISTORY OF ANTINEOPLASTIC CHEMO 12/13/2016 SHREYAS CLIFFORD N Ot Z92.3 PERSONAL HISTORY OF IRRADIATION 01/26/2017 Maria Del Carmen Koenig Final R87.810 Cervical high risk human papillomavirus (HPV) DNA test posit 01/26/2017 Maria Del Carmen Koenig Final Z12.4 Encounter for screening for malignant neoplasm of cervix 05/08/2017 W H52.13 Myopia, bilateral 05/08/2017 W 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 05/08/2017 W H52.13 Myopia, bilateral 05/08/2017 W H52.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, bilateral 05/08/2017 W 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 05/08/2017 W H52.13 Myopia, bilateral 05/08/2017 W H52.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, bilateral 05/09/2017 W 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 05/09/2017 W H52.13 Myopia, bilateral 05/09/2017 W H52.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, bilateral 05/16/2017 CHRIS MCELROY MD Ot Z78.0 ASYMPTOMATIC MENOPAUSAL STATE 05/17/2017 SHREYAS CLIFFORD Ot 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 05/17/2017 DARRINSHREYAS Ot D50.9 IRON DEFICIENCY ANEMIA, UNSPECIFIED 05/17/2017 SHREYAS CLIFFORD Ot M85.89 OTH DISRD OF BONE DENSITY AND STRUCTURE, 05/17/2017 DARRINSHREYAS Ot R29.890 LOSS OF HEIGHT 05/17/2017 DARRINSHREYAS Ot Z17.0 ESTROGEN RECEPTOR POSITIVE STATUS [ER+] 05/17/2017 DARRINSHREYAS Ot Z79.811 FPC (CURRENT) USE OF AROMATASE INH 05/17/2017 DARRINSHREYAS Ot Z92.21 PERSONAL HISTORY OF ANTINEOPLASTIC CHEMO 05/17/2017 SHREYAS CLIFFORD Ot Z92.3 PERSONAL HISTORY OF IRRADIATION 06/13/2017 SHREYAS CLIFFORD Ot 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 06/13/2017 DARRINSHREYAS Ot D50.9 IRON DEFICIENCY ANEMIA, UNSPECIFIED 06/13/2017 DARRINSHREYAS Ot M85.89 OTH DISRD OF BONE DENSITY AND STRUCTURE, 06/13/2017 DARRINSHREYAS Ot R29.890 LOSS OF HEIGHT 06/13/2017 DARRINSHREYAS Ot Z17.0 ESTROGEN RECEPTOR POSITIVE STATUS [ER+] 06/13/2017 DARRINSHREYAS Ot 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 INH 06/13/2017 SHREYAS CLIFFORD Ot Z92.21 PERSONAL HISTORY OF ANTINEOPLASTIC CHEMO 06/13/2017 SHREYAS CLIFFORD Ot Z92.3 PERSONAL HISTORY OF IRRADIATION 06/20/2017 SHREYAS CLIFFORD Ot 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 06/20/2017 SHREYAS CLIFFORD Ot D50.9 IRON DEFICIENCY ANEMIA, UNSPECIFIED 06/20/2017 SHREYAS CLIFFORD Ot M85.89 OTH DISRD OF BONE DENSITY AND STRUCTURE, 06/20/2017 SHREYAS CLIFFORD Ot R29.890 LOSS OF HEIGHT 06/20/2017 SHREYAS CLIFFORD Ot Z17.0 ESTROGEN RECEPTOR POSITIVE STATUS [ER+] 06/20/2017 SHREYAS CLIFFORD N Ot 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 INH 06/20/2017 SHREYAS CLIFFORD N Ot Z92.21 PERSONAL HISTORY OF ANTINEOPLASTIC CHEMO 06/20/2017 SHREYAS CLIFFORD N Ot Z92.3 PERSONAL HISTORY OF IRRADIATION 08/13/2017 SHREYAS CLIFFORD Ot 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 08/13/2017 SHREYAS CLIFFORD N Ot D50.9 IRON DEFICIENCY ANEMIA, UNSPECIFIED 08/13/2017 SHREYAS CLIFFORD N Ot M85.89 OTH DISRD OF BONE DENSITY AND STRUCTURE, 08/13/2017 SHREYAS CLIFFORD Ot R29.890 LOSS OF HEIGHT 08/13/2017 SHREYAS CLIFFORD Ot Z17.0 ESTROGEN RECEPTOR POSITIVE STATUS [ER+] 08/13/2017 SHREYAS CLIFFORD Ot Z79.811 FPC (CURRENT) USE OF AROMATASE INH 08/13/2017 SHREYAS CLIFFORD N Ot Z92.21 PERSONAL HISTORY OF ANTINEOPLASTIC CHEMO 08/13/2017 SHREYAS CLIFFORD N Ot Z92.3 PERSONAL HISTORY OF IRRADIATION 08/14/2017 SHREYAS CLIFFORD Ot 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9 MALIGN NEOPL BREAST NOS 10/10/2017 SHREYAS CLIFFORD Ot 174.9 MALIGN NEOPL BREAST NOS 10/10/2017 SHREYAS CLIFFORD Ot 716.99 ARTHROPATHY NOS-MULT 10/10/2017 SHREYAS CLIFFORD Ot V15.3 HX OF IRRADIATION 10/10/2017 SHREYAS CLIFFORD Ot V58.69 OTH MED,LT,CURRENT USE 10/10/2017 SHREYAS CLIFFORD Ot V86.0 ESTROGEN RECEPTOR POSITIVE STATUS [ER+] 10/10/2017 SHREYAS CLIFFORD Ot V86.1 ESTROGEN RECEPTOR NEGATIVE STATUS [ER-] 10/10/2017 SHREYAS CLIFFORD Ot V87.41 PERSONAL HISTORY OF ANTINEOPLASTIC CHEMO 10/10/2017 LUCA MELENDREZ REMOTE MORTGAGE UNDERWRITER Ot 174.9 MALIGN NEOPL BREAST NOS 10/10/2017 LUCA MELENDREZ REMOTE MORTGAGE UNDERWRITER Ot V15.3 HX OF IRRADIATION 10/10/2017 LUCA MELENDREZ REMOTE MORTGAGE UNDERWRITER Ot V16.3 FAMILY HX-BREAST MALIG 10/10/2017 LUCA MELENDREZ [employer] UNDERWRITER Ot V16.41 FAM HX-MAL NEOP-OVARY 10/10/2017 LUCA MELENDREZ [employer] UNDERWRITER Ot V58.69 OTH MED,LT,CURRENT USE 10/10/2017 LUCA MELENDREZ [employer] UNDERWRITER Ot V86.0 ESTROGEN RECEPTOR POSITIVE STATUS [ER+] 10/10/2017 LUCA MELENDREZ [employer] UNDERWRITER Ot V86.1 ESTROGEN RECEPTOR NEGATIVE STATUS [ER-] 10/10/2017 LUCA MELENDREZ [employer] UNDERWRITER Ot V87.41 PERSONAL HISTORY OF ANTINEOPLASTIC CHEMO 10/10/2017 LUCA MELENDREZ [employer] UNDERWRITER Ot 174.9 MALIGN NEOPL BREAST NOS 10/10/2017 LUCA MELENDREZ [employer] UNDERWRITER Ot 780.4 DIZZINESS AND GIDDINESS 10/10/2017 MELENDREZLUCA Trevino [employer]OTE M[employer] UNDERWRITER Ot 174.9 MALIGN NEOPL BREAST NOS 10/10/2017 MELENDREZLUCA Trevino REMOTE M[employer]GAGE UNDERWRITER Ot V15.3 HX OF IRRADIATION 10/10/2017 MELENDREZ LUCA Trevino [employer]OTE M[employer]GAGE UNDERWRITER Ot V16.3 FAMILY HX-BREAST MALIG 10/10/2017 PARVIN LUCA Trevino REM[employer] M[employer] UNDERWRITER Ot V16.41 FAM HX-MAL NEOP-OVARY 10/10/2017 MELENDREZLUCA Trevino [employer] M[employer] UNDERWRITER Ot V58.69 OTH MED,LT,CURRENT USE 10/10/2017 PARVIN LUCA Trevino REMOTE M[employer]GAGE UNDERWRITER Ot V86.0 ESTROGEN RECEPTOR POSITIVE STATUS [ER+] 10/10/2017 PARVIN LUCA Trevino [employer]OTE M[employer]GAGE UNDERWRITER Ot V86.1 ESTROGEN RECEPTOR NEGATIVE STATUS [ER-] 10/10/2017 PARVINLUCA REMOTE M[employer]GAGE UNDERWRITER Ot V87.41 PERSONAL HISTORY OF ANTINEOPLASTIC CHEMO 10/10/2017 BEAU MELENDREZERVIN Belinda [employer] M[employer] UNDERWRITER Ot 174.9 MALIGN NEOPL BREAST NOS 10/10/2017 MELENDREZ LUCA Trevino REMOTE M[employer]GAGE UNDERWRITER Ot 733.90 BONE CARTILAGE DIS NOS 10/10/2017 MELENDREZLUCA Trevino REMOTE M[employer] UNDERWRITER Ot V49.81 ASYMPT POSTMENOPAUSAL STATUS (AGE-RELATE 10/10/2017 SHREYAS CLIFFORD Ot 174.9 MALIGN NEOPL BREAST NOS 10/10/2017 SHREYAS CLIFFORD Ot V15.3 HX OF IRRADIATION 10/10/2017 SHREYAS CLIFFORD Ot V16.3 FAMILY HX-BREAST MALIG 10/10/2017 SHREYAS CLIFFORD Ot V16.41 FAM HX-MAL NEOP-OVARY 10/10/2017 SHREYAS CLIFFORD Ot V58.69 OTH MED,LT,CURRENT USE 10/10/2017 SHREYAS CLIFFORD Ot V87.41 PERSONAL HISTORY OF ANTINEOPLASTIC CHEMO 10/10/2017 SHREYAS CLIFFORD Ot 174.9 MALIGN NEOPL BREAST NOS 10/10/2017 SHREYAS CLIFFORD Ot 780.4 DIZZINESS AND GIDDINESS 10/10/2017 SHREYAS CLIFFORD Ot V15.3 HX OF IRRADIATION 10/10/2017 SHREYAS CLIFFORD Ot V16.3 FAMILY HX-BREAST MALIG 10/10/2017 DARRIN, BOBAN N Ot V16.41 FAM HX-MAL NEOP-OVARY 10/10/2017 DARRIN SHREYAS N Ot V58.69 OTH MED,LT,CURRENT USE 10/10/2017 SHREYAS CLIFFORD N Ot V86.0 ESTROGEN RECEPTOR POSITIVE STATUS [ER+] 10/10/2017 SHREYAS CLIFFORD N Ot V86.1 ESTROGEN RECEPTOR NEGATIVE STATUS [ER-] 10/10/2017 DARRINSHREYAS N Ot V87.41 PERSONAL HISTORY OF ANTINEOPLASTIC CHEMO 10/10/2017 SHREYAS CLIFFORD N Ot 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 10/10/2017 SHREYAS CLIFFORD N Ot 174.9 MALIGN NEOPL BREAST NOS 10/10/2017 DARRINSHREYAS N Ot V15.3 HX OF IRRADIATION 10/10/2017 SHREYAS CLIFFORD N Ot V16.3 FAMILY HX-BREAST MALIG 10/10/2017 SHREYAS CLIFFORD N Ot V16.41 FAM HX-MAL NEOP-OVARY 10/10/2017 SHREYAS CLIFFORD N Ot V58.69 OTH MED,LT,CURRENT USE 10/10/2017 SHREYAS CLIFFORD N Ot V87.41 PERSONAL HISTORY OF ANTINEOPLASTIC CHEMO 10/10/2017 SHREYAS CLIFFORD N Ot 174.9 MALIGN NEOPL BREAST NOS 10/10/2017 DARRINSHREYAS N Ot 733.90 BONE CARTILAGE DIS NOS 10/10/2017 DARRINSHREYAS N Ot V15.3 HX OF IRRADIATION 10/10/2017 SHREYAS CLIFFORD N Ot V58.69 OTH MED,LT,CURRENT USE 10/10/2017 SHREYAS CLIFFORD N Ot V86.0 ESTROGEN RECEPTOR POSITIVE STATUS [ER+] 10/10/2017 SHREYAS CLIFFORD N Ot V86.1 ESTROGEN RECEPTOR NEGATIVE STATUS [ER-] 10/10/2017 SHREYAS CLIFFORD N Ot V87.41 PERSONAL HISTORY OF ANTINEOPLASTIC CHEMO 10/10/2017 SHREYAS CLIFFORD N Ot 174.9 MALIGN NEOPL BREAST NOS 10/10/2017 DARRIN BOBAXEL N Ot 733.90 BONE CARTILAGE DIS NOS 10/10/2017 SHREYAS CLIFFORD N Ot V15.3 HX OF IRRADIATION 10/10/2017 SHREYAS CLIFFORD N Ot V58.69 OTH MED,LT,CURRENT USE 10/10/2017 SHREYAS CLIFFORD N Ot V86.0 ESTROGEN RECEPTOR POSITIVE STATUS [ER+] 10/10/2017 SHREYAS CLIFFORD N Ot V86.1 ESTROGEN RECEPTOR NEGATIVE STATUS [ER-] 10/10/2017 SHREYAS CLIFFORD N Ot V87.41 PERSONAL HISTORY OF ANTINEOPLASTIC CHEMO 10/10/2017 SHREYAS CLIFFORD N Ot 174.9 MALIGN NEOPL BREAST NOS 10/10/2017 SHREYAS CLIFFORD N Ot 280.9 IRON DEFIC ANEMIA NOS 10/10/2017 SHREYAS CLIFFORD N Ot 733.90 BONE CARTILAGE DIS NOS 10/10/2017 SHREYAS CLIFFORD N Ot V15.3 HX OF IRRADIATION 10/10/2017 SHREYAS CLIFFORD [place] Ot V58.69 OTH MED,LT,CURRENT USE 10/10/2017 SHREYAS CLIFFORD N Ot V86.0 ESTROGEN RECEPTOR POSITIVE STATUS [ER+] 10/10/2017 SHREYAS CLIFFORD N Ot V86.1 ESTROGEN RECEPTOR NEGATIVE STATUS [ER-] 10/10/2017 SHREYAS CLIFFORD [place] Ot V87.41 PERSONAL HISTORY OF ANTINEOPLASTIC CHEMO 10/10/2017 SHREYAS CLIFFORD N Ot 174.9 MALIGN NEOPL BREAST NOS 10/10/2017 SHREYAS CLIFFORD N Ot 280.9 IRON DEFIC ANEMIA NOS 10/10/2017 SHREYAS CLIFFORD N Ot 733.90 BONE CARTILAGE DIS NOS 10/10/2017 SHREYAS CLIFFORD [place] Ot V15.3 HX OF IRRADIATION 10/10/2017 SHREYAS CLIFFORD [place] Ot V58.69 OTH MED,LT,CURRENT USE 10/10/2017 SHREYAS CLIFFORD [place] Ot V86.0 ESTROGEN RECEPTOR POSITIVE STATUS [ER+] 10/10/2017 SHREYAS CLIFFORD N Ot C50.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 10/10/2017 SHREYAS CLIFFORD [place] Ot C50.912 MALIGNANT NEOPLASM OF UNSPECIFIED SITE O 10/10/2017 SHREYAS CLIFFORD [place] Ot D50.9 IRON DEFICIENCY ANEMIA, UNSPECIFIED 10/10/2017 SHREYAS CLIFFORD [place] M85.89 OTH DISRD OF BONE DENSITY AND STRUCTURE, 10/10/2017 SHREYAS CLIFFORD [place] Z17.0 ESTROGEN RECEPTOR POSITIVE STATUS [ER+] 10/10/2017 DARRINSHREYAS BAEZA [place] Z79.811 FPC (CURRENT) USE OF AROMATASE INH 10/10/2017 SHREYAS CLIFFORD N Ot Z92.21 PERSONAL HISTORY OF ANTINEOPLASTIC CHEMO 10/10/2017 SHREYAS CLIFFORD N Ot Z92.3 PERSONAL HISTORY OF IRRADIATION 10/10/2017 SHREYAS CLIFFORD Ot R29.890 LOSS OF HEIGHT 10/10/2017 SHREYAS CLIFFORD Ot 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 10/10/2017 SHREYAS CLIFFORD Ot D50.9 IRON DEFICIENCY ANEMIA, UNSPECIFIED 10/10/2017 SHREYAS CLIFFORD N Ot M85.89 OTH DISRD OF BONE DENSITY AND STRUCTURE, 10/10/2017 SHREYAS CLIFFORD Ot Z17.0 ESTROGEN RECEPTOR POSITIVE STATUS [ER+] 10/10/2017 SHREYAS CLIFFORD N Ot 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 INH 10/10/2017 SHREYAS CLIFFORD N Ot Z92.21 PERSONAL HISTORY OF ANTINEOPLASTIC CHEMO 10/10/2017 SHREYAS CLIFFORD N Ot Z92.3 PERSONAL HISTORY OF IRRADIATION 10/10/2017 SHREYAS CLIFFORD N Ot 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 10/10/2017 SHREYAS CLIFFORD N Ot D50.9 IRON DEFICIENCY ANEMIA, UNSPECIFIED 10/10/2017 SHREYAS CLIFFORD N Ot M85.89 OTH DISRD OF BONE DENSITY AND STRUCTURE, 10/10/2017 SHREYAS CLIFFORD N Ot Z17.0 ESTROGEN RECEPTOR POSITIVE STATUS [ER+] 10/10/2017 SHREYAS CLIFFORD N Ot 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 INH 10/10/2017 SHREYAS CLIFFORD N Ot Z92.21 PERSONAL HISTORY OF ANTINEOPLASTIC CHEMO 10/10/2017 SHREYAS CLIFFORD N Ot Z92.3 PERSONAL HISTORY OF IRRADIATION 10/10/2017 SHREYAS CLIFFORD N Ot 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 10/10/2017 SHREYAS CLIFFORD N Ot D50.9 IRON DEFICIENCY ANEMIA, UNSPECIFIED 10/10/2017 SHREYAS CLIFFORD N Ot M85.89 OTH DISRD OF BONE DENSITY AND STRUCTURE, 10/10/2017 SHREYAS CLIFFORD N Ot Z17.0 ESTROGEN RECEPTOR POSITIVE STATUS [ER+] 10/10/2017 SHREYAS CLIFFORD N Ot 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 INH 10/10/2017 SHREYAS CLIFFORD N Ot Z92.21 PERSONAL HISTORY OF ANTINEOPLASTIC CHEMO 10/10/2017 SHREYAS CLIFFORD N Ot Z92.3 PERSONAL HISTORY OF IRRADIATION 10/10/2017 SHREYAS CLIFFORD Ot 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 10/10/2017 SHREYAS CLIFFORD Ot D50.9 IRON DEFICIENCY ANEMIA, UNSPECIFIED 10/10/2017 SHREYAS CLIFFORD N Ot M85.89 OTH DISRD OF BONE DENSITY AND STRUCTURE, 10/10/2017 SHREYAS CLIFFORD N Ot Z17.0 ESTROGEN RECEPTOR POSITIVE STATUS [ER+] 10/10/2017 SHREYAS CLIFFORD N Ot 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 INH 10/10/2017 SHREYAS CLIFFORD N Ot Z92.21 PERSONAL HISTORY OF ANTINEOPLASTIC CHEMO 10/10/2017 SHREYAS CLIFFORD N Ot Z92.3 PERSONAL HISTORY OF IRRADIATION 10/10/2017 SHREYAS CLIFFORD N Ot 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 10/10/2017 SHREYAS CLIFFORD N Ot D50.9 IRON DEFICIENCY ANEMIA, UNSPECIFIED 10/10/2017 SHREYAS CLIFFORD N Ot M85.89 OTH DISRD OF BONE DENSITY AND STRUCTURE, 10/10/2017 SHREYAS CLIFFORD Ot R29.890 LOSS OF HEIGHT 10/10/2017 SHREYAS CLIFFORD Ot Z17.0 ESTROGEN RECEPTOR POSITIVE STATUS [ER+] 10/10/2017 SHREYAS CLIFFORD N Ot 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 INH 10/10/2017 HSREYAS CLIFFORD N Ot Z92.21 PERSONAL HISTORY OF ANTINEOPLASTIC CHEMO 10/10/2017 DARRINSHREYAS BAEZA N Ot Z92.3 PERSONAL HISTORY OF IRRADIATION 10/10/2017 CHRIS MCELROY MD Ot Z78.0 ASYMPTOMATIC MENOPAUSAL STATE 10/12/2017 CHRIS MCELROY MD Ot 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 10/12/2017 CHRIS MCELROY MD Ot M85.88 OTH DISRD OF BONE DENSITY AND STRUCTURE, 10/12/2017 CHRIS MCELROY MD Ot Z13.820 ENCOUNTER FOR SCREENING FOR OSTEOPOROSIS 10/12/2017 LILIBETH LOVELACE, CHRIS Ot Z78.0 ASYMPTOMATIC MENOPAUSAL STATE 10/12/2017 DAVID SMITH MD, Ot I48.91 UNSPECIFIED ATRIAL FIBRILLATION 10/15/2017 DAVID SMITH MD, Ot E11.9 TYPE 2 DIABETES MELLITUS WITHOUT COMPLIC 10/15/2017 DAVID SMITH MD, Ot E78.00 PURE HYPERCHOLESTEROLEMIA, UNSPECIFIED 10/15/2017 DAVID SMITH MD, Ot I08.3 COMB RHEUMATIC DISORD OF MITRAL, AORTIC 10/15/2017 DAVID SMITH MD, Ot I10 ESSENTIAL (PRIMARY) HYPERTENSION 10/15/2017 DAVID SMITH MD, Ot I27.20 PULMONARY HYPERTENSION, UNSPECIFIED 10/15/2017 DAVID SMITH MD, Ot I48.91 UNSPECIFIED ATRIAL FIBRILLATION Procedures Code Description [place] [address] SPECIAL SERVICE/PROC/REPORT 04/07/2016 29076 SPECIAL SERVICE/PROC/REPORT 05/08/2017 Results Test Result Range PAP - 05/05/15 12:58 PAP Smear Billing Fee Code(s): 1: 22562 [facility] PAP - 05/08/16 09:46 PAP Smear Billing Fee Code(s): 1: 46806 [facility] PAP - 01/26/17 14:02 PAP Smear Billing Fee Code(s): 1: 41667, 00313 [facility] Surgical Pathology - 02/12/17 16:01 [facility]ICAL[facility] Diagnosis over-read by Ana M Carlos MD. [facility] Automated blood complete blood count (hemogram) panel - 10/17/17 12:30 Blood leukocytes automated count (number/volume) 7.9 10*3/uL 4.3-11.0 Blood erythrocytes automated count (number/volume) 5.21 10*6/uL 4.35-5.85 Venous blood hemoglobin measurement (mass/volume) 14.2 g/dL 11.5-16.0 Blood hematocrit (volume fraction) 43 % 35-52 Automated erythrocyte mean corpuscular volume 82 [foz_us] 80-99 Automated erythrocyte mean corpuscular hemoglobin (mass per erythrocyte) 27 pg 25-34 Automated erythrocyte mean corpuscular hemoglobin concentration measurement ( mass/volume) 33 g/dL 32-36 Automated erythrocyte distribution width ratio 15.2 % 10.0-14.5 Automated blood platelet count (count/volume) 394 10*3/uL 130-400 Automated blood platelet mean volume measurement 10.2 [foz_us] 7.4-10.4 PT panel in platelet poor plasma by coagulation assay - 10/17/17 12:30 Prothrombin time (PT) in platelet poor plasma by coagulation assay 14.0 s 12.2-14.7 INR in platelet poor plasma or blood by coagulation assay 1.1 0.8-1.4 Activated partial thromboplastin time (aPTT) in platelet poor plasma bycoagulation assay - 10/17/17 12:30 Activated partial thromboplastin time (aPTT) in platelet poor plasma bycoagulation assay 29 s 24-35 Comprehensive metabolic panel - 10/17/17 12:30 Serum or plasma sodium measurement (moles/volume) 138 mmol/L 135-145 Serum or plasma potassium measurement (moles/volume) 4.1 mmol/L 3.6-5.0 Serum or plasma chloride measurement (moles/volume) 105 mmol/L 98-107 Carbon dioxide 24 mmol/L 21-32 Serum or plasma anion gap determination (moles/volume) 9 mmol/L 5-14 Serum or plasma urea nitrogen measurement (mass/volume) 17 mg/dL 7-18 Serum or plasma creatinine measurement (mass/volume) 0.85 mg/dL 0.60-1.30 Serum or plasma urea nitrogen/creatinine mass ratio 20 NRG Serum or plasma creatinine measurement with calculation of estimated glomerular filtration rate > NRG Serum or plasma glucose measurement (mass/volume) 135 mg/dL 70-105 Serum or plasma calcium measurement (mass/volume) 9.6 mg/dL 8.5-10.1 Serum or plasma total bilirubin measurement (mass/volume) 1.0 mg/dL 0.1-1.0 Serum or plasma alkaline phosphatase measurement (enzymatic activity/volume) 91 U/L 40-136 Serum or plasma aspartate aminotransferase measurement (enzymatic activity/ volume) 18 U/L 5-34 Serum or plasma alanine aminotransferase measurement (enzymatic activity/volume ) 18 U/L 0-55 Serum or plasma protein measurement (mass/volume) 8.0 g/dL 6.4-8.2 Serum or plasma albumin measurement (mass/volume) 4.6 g/dL 3.2-4.5 Lipid 1996 panel - 10/17/17 12:30 Serum or plasma triglyceride measurement (mass/volume) 109 mg/dL <150 Serum or plasma cholesterol measurement (mass/volume) 163 mg/dL < 200 Serum or plasma cholesterol in HDL measurement (mass/volume) 71 mg/ dL 40-60 Cholesterol in LDL [mass/volume] in serum or plasma by direct assay 79 mg/dL 1-129 Serum or plasma cholesterol in VLDL measurement (mass/volume) 22 mg/ dL 5-40 Encounters ACCT No. Visit Date/Time Discharge Status Pt. Type Provider Facility Loc./Unit Complaint [id number] 10/12/2017 10:54:00 10/12/2017 23:59:59 CLS Outpatient SARAH LOVELACE, DAVID Girard [facility] CARD I48.91 AF [id number] 10/11/2017 10:36:00 10/11/2017 23:59:59 CLS Outpatient SHREYAS CLIFFORD N [facility] ONC [id number] 10/11/2017 09:35:00 10/11/2017 23:59:59 CLS Outpatient CHRIS MCELROY MD [facility] RAD Z78.0 POSTMENOPAUSAL [id number] 05/15/2017 10:49:00 08/13/2017 00:01:00 DIS Outpatient DARRIN, BOBAN N [facility] ONC [id number] 11/14/2016 11:13:00 11/14/2016 23:59:59 CLS Outpatient DARRIN BOBAN N [facility] FS [id number] 05/23/2016 11:47:00 05/23/2016 23:59:59 CLS Outpatient DARRIN, BOBAN N [facility] FS [id number] 05/16/2016 11:08:00 05/16/2016 23:59:59 CLS Outpatient DARRIN BOBAN N [facility] FS [id number] 12/14/2015 10:59:00 12/14/2015 23:59:59 CLS Outpatient DARRIN BOBAN N [facility] FS [id number] 08/31/2015 11:32:00 08/31/2015 23:59:59 CLS Outpatient DARRIN BOBAN N [facility] FS [id number] 08/19/2015 09:26:00 08/19/2015 23:59:59 CLS Outpatient SHREYAS CLIFFORD N [facility] RAD LOSS OF HEIGHT [id number] 05/11/2015 14:33:00 05/11/2015 23:59:59 CLS Outpatient SHREYAS CLIFFORD N [facility] FS [id number] 02/09/2015 12:54:00 02/09/2015 23:59:59 CLS Outpatient SHREYAS CLIFFORD N [facility] FS [id number] 11/10/2014 11:30:00 11/10/2014 23:59:59 CLS Outpatient SHREYAS CLIFFORD N [facility] FS [id number] 07/07/2014 11:42:00 07/07/2014 23:59:59 CLS Outpatient SHREYAS CLIFFORD N [facility] FS [id number] 03/31/2014 13:56:00 03/31/2014 23:59:59 CLS Outpatient SHREYAS CLIFFORD N [facility] FS [id number] 01/13/2014 10:28:00 01/13/2014 23:59:59 CLS Outpatient SHREYAS CLIFFORD N [facility] FS [id number] 10/20/2013 09:25:00 10/20/2013 23:59:59 CLS Outpatient SHREYAS CLIFFORD N [facility] ONC [id number] 10/14/2013 13:20:00 10/14/2013 23:59:59 CLS Outpatient SHREYAS CLIFFORD N [facility] FS [id number] 08/26/2013 08:37:00 10/13/2013 00:01:00 DIS Outpatient DARRINSHREYAS BAEZA N [facility] ONC [id number] 09/16/2013 13:36:00 09/16/2013 23:59:59 CLS Outpatient HSREYAS CLIFFORD N [facility] FS [id number] 09/04/2013 08:12:00 09/04/2013 23:59:59 CLS Outpatient LUCA MELENDREZ [facility] RAD POST MENOPAUSAL [id number] 09/02/2013 08:57:00 09/02/2013 23:59:59 CLS Outpatient LUCA MELENDREZ [employer] [facility] ONC [id number] 08/25/2013 13:10:00 08/25/2013 23:59:59 CLS Outpatient MELENDREZ LUCA Trevino [employer] [facility] RAD DIZZINESS [id number] 08/05/2013 12:20:00 08/05/2013 23:59:59 CLS Outpatient LUCA MELENDREZ [employer] [facility] ONC [id number] 07/08/2013 09:58:00 07/08/2013 23:59:59 CLS Outpatient SHREYAS CLIFFORD [facility] FS [id number] 05/01/2013 11:49:00 05/01/2013 23:59:59 CLS Outpatient PARVIN LUCA Trevino [employer] UND[employer] [facility] RAD RECURRENT BREAST CA [id number] 04/22/2013 12:51:00 04/22/2013 23:59:59 CLS Outpatient SHREYAS CLIFFORD [facility] FS [id number] 10/17/2017 11:43:00 ACT Outpatient SARAH LOVELACE, DAVID Girard [facility] CATH SEVERE MR,DIASTOLIC DYSFUNCTION [id number] 04/30/2012 15:17:00 Document Registration [id number] 09/21/2011 09:25:00 Document Registration [id number] 04/25/2011 15:08:00 Document Registration [id number] 07/05/2010 15:26:00 Document Registration [id number] 02/10/2015 05:39:54 ACT Document Registration [id number] 02/12/2017 09:39:49 02/12/2017 23:59:59 CLS Outpatient Maria Del Carmen Koenig OB/ [employer] [facility] with ECC. +hpv/hx LEEP [id number] 01/26/2017 07:12:18 01/26/2017 23:59:59 CLS Outpatient Julia Plasencia [employer] [facility] [facility] new pt yrly, transfer from [facility] [id number] 01/26/2017 00:00:00 01/26/2017 23:59:59 CLS Outpatient Scanned Documents [id number] 02/12/2017 14:31:00 02/12/2017 23:59:00 [id number]/2017 12:30:00 01/26/2017 23:59:00 [facility] W/O ABNORMAL FINDINGS [id number] 05/08/2016 18:38:00 05/08/2016 23:59:00 DIS Outpatient Dusty Prado [id number] 05/05/2015 12:38:00 05/05/2015 23:59:00 DIS Outpatient Dusty Prado [id number] 10/21/2014 16:39:00 10/21/2014 23:59:00 DIS Outpatient Dusty Prado [id number] 09/19/2017 16:12:24 09/19/2017 16:12:25 DIS Outpatient [id number] 02/14/2015 05:55:15 Document Registration [id number] 02/14/2015 05:55:14 Document Registration [id number] 05/08/2017 15:30:00 Document Registration [id number] 04/07/2016 15:15:00 Document Registration
== END 2017-10-17 19:40 | disposition home or self-care (01) ==
LOC: CATH 11:43 → 4TH 15:25 → CATH 19:40
PROVIDERS: ATTEND Internal Medicine Cardiovascular Disease
DX: I25.10 Atherosclerotic heart disease of native coronary artery without angina pectoris (principal); I34.0 Nonrheumatic mitral (valve) insufficiency; I10 Essential (primary) hypertension; E78.5 Hyperlipidemia, unspecified; E11.9 Type 2 diabetes mellitus without complications; I48.91 Unspecified atrial fibrillation; Z11.2 Encounter for screening for other bacterial diseases; Z96.651 Presence of right artificial knee joint; Z96.652 Presence of left artificial knee joint
CPT/HCPCS: 36221; 36415; 71045; 80053; 80061; 82810; 85027; 85610; 85730; 87081; 93460

== ENCOUNTER 2018-04-03 13:22 | Outpatient (RCR) | payer MEDICARE, BC ==
[~2018-04-03 13:22] MED LIST changes: +BENA40TA5 PO; -BNZ40T PO; +METF-397 PO; -METF500T5 PO
== END 2018-04-07 | disposition home or self-care (01) ==
LOC: CR 13:22
PROVIDERS: ATTEND Thoracic Surgery (Cardiothoracic Vascular Surgery)
DX: Z48.812 Encounter for surgical aftercare following surgery on the circulatory system (principal); Z95.1 Presence of aortocoronary bypass graft; Z95.2 Presence of prosthetic heart valve
CPT/HCPCS: 93798

== ENCOUNTER 2018-05-16 12:36 | Outpatient (RCR) | payer MEDICARE, BC ==
[2018-05-16 12:52] LABS: BASOPHILS # (AUTO) 0.1 10^3/uL (0.0-0.1); BASOPHILS % (AUTO) 1 % (0-10); EOSINOPHILS # (AUTO) 0.3 10^3/uL (0.0-0.3); EOSINOPHILS % (AUTO) 3 % (0-10); HEMATOCRIT 43 % (35-52); HEMOGLOBIN 13.8 G/DL (11.5-16.0); LYMPHOCYTES # (AUTO) 1.6 X 10^3 (1.0-4.0); LYMPHOCYTES % (AUTO) 21 % (12-44); MEAN CORPUSCULAR HEMOGLOBIN 27 PG (25-34); MEAN CORPUSCULAR HGB CONC 32 G/DL (32-36); MEAN CORPUSCULAR VOLUME 85 FL (80-99); MEAN PLATELET VOLUME 10.1 FL (7.4-10.4); MONOCYTES % (AUTO) 14 % (0-12); NEUTROPHILS # (AUTO) 4.7 X 10^3 (1.8-7.8); NEUTROPHILS % (AUTO) 62 % (42-75); PLATELET COUNT 355 10^3/uL (130-400); RED CELL DISTRIBUTION WIDTH 17.4 % (10.0-14.5); WHITE BLOOD COUNT 7.6 10^3/uL (4.3-11.0)
[2018-05-16 13:09] LABS: ALANINE AMINOTRANSFERASE 14 U/L (0-55); ALBUMIN 4.3 GM/DL (3.2-4.5); ALKALINE PHOSPHATASE 115 U/L (40-136); BILIRUBIN,TOTAL 0.5 MG/DL (0.1-1.0); BUN/CREATININE RATIO 28; CALCIUM 10.5 MG/DL (8.5-10.1); CARBON DIOXIDE 24 MMOL/L (21-32); CHLORIDE 103 MMOL/L (98-107); CREATININE SERUM 0.89 MG/DL (0.60-1.30); GFR ESTIMATED > 60; GLUCOSE 98 MG/DL (70-105); POTASSIUM 4.8 MMOL/L (3.6-5.0); SODIUM 140 MMOL/L (135-145); TOTAL PROTEIN 7.4 GM/DL (6.4-8.2)
[2018-05-16] MEDS ORDERED: DENOSUMAB 60 MG/1 ML (PROLIA) CANCER CTR SQ SCH (13:45)
== END 2018-08-14 | disposition home or self-care (01) ==
LOC: ONC 12:36
PROVIDERS: ATTEND Internal Medicine Hematology & Oncology
DX: C50.511 Malignant neoplasm of lower-outer quadrant of right female breast (principal); D50.9 Iron deficiency anemia, unspecified; M85.89 Other specified disorders of bone density and structure, multiple sites; I48.91 Unspecified atrial fibrillation; R06.09 Other forms of dyspnea; R29.890 Loss of height; Z17.0 Estrogen receptor positive status [ER+]; Z92.21 Personal history of antineoplastic chemotherapy; Z92.3 Personal history of irradiation; Z79.811 Long term (current) use of aromatase inhibitors
CPT/HCPCS: 36415; 80053; 82728; 85025; 96372

== ENCOUNTER → 2018-06-07 | Outpatient (CLI) | payer MEDICARE, BC | LOC: CARD 09:56 | PROVIDERS: ATTEND Internal Medicine Cardiovascular Disease | DX: I48.91 Unspecified atrial fibrillation (principal); I25.10 Atherosclerotic heart disease of native coronary artery without angina pectoris; I11.9 Hypertensive heart disease without heart failure; I08.3 Combined rheumatic disorders of mitral, aortic and tricuspid valves; Z95.2 Presence of prosthetic heart valve | CPT/HCPCS: 93306 ==

== ENCOUNTER 2018-11-14 12:47 | Outpatient (RCR) | payer MEDICARE, BC ==
[2018-11-14 13:28] LABS: BASOPHILS # (AUTO) 0.1 10^3/uL (0.0-0.1); BASOPHILS % (AUTO) 1 % (0-10); EOSINOPHILS # (AUTO) 0.3 10^3/uL (0.0-0.3); EOSINOPHILS % (AUTO) 3 % (0-10); HEMATOCRIT 43 % (35-52); LYMPHOCYTES # (AUTO) 1.5 X 10^3 (1.0-4.0); LYMPHOCYTES % (AUTO) 19 % (12-44); MEAN CORPUSCULAR HEMOGLOBIN 28 PG (25-34); MEAN CORPUSCULAR HGB CONC 33 G/DL (32-36); MEAN CORPUSCULAR VOLUME 85 FL (80-99); MEAN PLATELET VOLUME 10.4 FL (7.4-10.4); MONOCYTES % (AUTO) 13 % (0-12); NEUTROPHILS % (AUTO) 64 % (42-75); PLATELET COUNT 368 10^3/uL (130-400); RED CELL DISTRIBUTION WIDTH 13.8 % (10.0-14.5); WHITE BLOOD COUNT 7.7 10^3/uL (4.3-11.0)
[2018-11-14 13:45] LABS: ALANINE AMINOTRANSFERASE 12 U/L (0-55); ALBUMIN 4.3 GM/DL (3.2-4.5); ALKALINE PHOSPHATASE 103 U/L (40-136); BILIRUBIN,TOTAL 0.4 MG/DL (0.1-1.0); BUN/CREATININE RATIO 24; CALCIUM 10.2 MG/DL (8.5-10.1); CARBON DIOXIDE 27 MMOL/L (21-32); CHLORIDE 101 MMOL/L (98-107); CREATININE SERUM 0.89 MG/DL (0.60-1.30); GFR ESTIMATED > 60; GLUCOSE 111 MG/DL (70-105); POTASSIUM 4.1 MMOL/L (3.6-5.0); SODIUM 138 MMOL/L (135-145); TOTAL PROTEIN 7.4 GM/DL (6.4-8.2)
[2018-11-14] MEDS ORDERED: DENOSUMAB 60 MG/1 ML (PROLIA) CANCER CTR SQ SCH (14:15)
== END 2019-02-12 | disposition home or self-care (01) ==
LOC: ONC 12:47
PROVIDERS: ATTEND Internal Medicine Hematology & Oncology
DX: C50.511 Malignant neoplasm of lower-outer quadrant of right female breast (principal); D50.9 Iron deficiency anemia, unspecified; M85.89 Other specified disorders of bone density and structure, multiple sites; I48.91 Unspecified atrial fibrillation; R06.09 Other forms of dyspnea; R29.890 Loss of height; Z17.0 Estrogen receptor positive status [ER+]; Z92.21 Personal history of antineoplastic chemotherapy; Z92.3 Personal history of irradiation; Z79.811 Long term (current) use of aromatase inhibitors; Z95.2 Presence of prosthetic heart valve; Z79.01 Long term (current) use of anticoagulants
CPT/HCPCS: 36415; 80053; 82728; 85025; 96372

== ENCOUNTER 2019-05-21 13:15 | Outpatient (RCR) | payer MEDICARE, BC ==
[~2019-05-21 13:15] MED LIST changes: -LETR2.5T5 PO; +LETR2.5T6 PO
[2019-05-21 13:36] LABS: BASOPHILS % (AUTO) 1 % (0-10); EOSINOPHILS # (AUTO) 0.2 10^3/uL (0.0-0.3); EOSINOPHILS % (AUTO) 3 % (0-10); HEMATOCRIT 39 % (35-52); HEMOGLOBIN 12.6 G/DL (11.5-16.0); LYMPHOCYTES # (AUTO) 1.3 X 10^3 (1.0-4.0); LYMPHOCYTES % (AUTO) 21 % (12-44); MEAN CORPUSCULAR HEMOGLOBIN 28 PG (25-34); MEAN CORPUSCULAR HGB CONC 32 G/DL (32-36); MEAN CORPUSCULAR VOLUME 87 FL (80-99); MEAN PLATELET VOLUME 10.9 FL (7.4-10.4); MONOCYTES # (AUTO) 0.6 X 10^3 (0.0-1.0); MONOCYTES % (AUTO) 10 % (0-12); NEUTROPHILS # (AUTO) 3.9 X 10^3 (1.8-7.8); NEUTROPHILS % (AUTO) 65 % (42-75); PLATELET COUNT 321 10^3/uL (130-400); RED CELL DISTRIBUTION WIDTH 14.4 % (10.0-14.5)
[2019-05-21 13:59] LABS: BILIRUBIN,TOTAL 0.4 MG/DL (0.1-1.0); CALCIUM 9.6 MG/DL (8.5-10.1); CREATININE SERUM 0.98 MG/DL (0.60-1.30); POTASSIUM 4.3 MMOL/L (3.6-5.0); TOTAL PROTEIN 6.9 GM/DL (6.4-8.2)
[2019-05-21] MEDS ORDERED: DENOSUMAB 60 MG/1 ML (PROLIA) CANCER CTR SQ SCH (14:30)
[2019-07-27] MEDS ORDERED: METF-397 PO (16:44)
[2019-07-27] MEDS ORDERED: FLUO20CA46 PO (16:44)
[2019-07-27] MEDS ORDERED: WARF4TAB70 PO (16:44)
[2019-07-27] MEDS ORDERED: AMLO10TA7 PO (16:44)
[2019-07-27] MEDS ORDERED: ATOR20TA66 PO (16:44)
[2019-07-27] MEDS ORDERED: METO50TA7 PO (16:44)
[2019-07-27] MEDS ORDERED: ASPI-586 PO (17:00)
[2019-07-27] MEDS ORDERED: DOCU-143 PO (17:00)
[2019-07-27] MEDS ORDERED: WARF4TAB PO (17:02)
[2019-07-28] MEDS ORDERED: LETR2.5T6 PO (11:09)
[2019-07-28] MEDS ORDERED: MULT-178 PO (11:17)
[2019-07-28] MEDS ORDERED: DOCU-238 PO (11:17)
[2019-07-28] MEDS ORDERED: CALC-654 PO (11:17)
[2019-07-28] MEDS ORDERED: CHOL200012 PO (11:17)
== END 2019-08-12 10:36 | disposition home or self-care (01) ==
LOC: ONC 13:15
PROVIDERS: ATTEND Internal Medicine Hematology & Oncology
DX: C50.511 Malignant neoplasm of lower-outer quadrant of right female breast (principal); D50.9 Iron deficiency anemia, unspecified; M85.89 Other specified disorders of bone density and structure, multiple sites; I48.91 Unspecified atrial fibrillation; I25.10 Atherosclerotic heart disease of native coronary artery without angina pectoris; I10 Essential (primary) hypertension; E78.2 Mixed hyperlipidemia; Z92.21 Personal history of antineoplastic chemotherapy; Z92.3 Personal history of irradiation; Z79.811 Long term (current) use of aromatase inhibitors; R29.890 Loss of height; R06.09 Other forms of dyspnea; Z17.0 Estrogen receptor positive status [ER+]; Z95.2 Presence of prosthetic heart valve; Z79.01 Long term (current) use of anticoagulants
CPT/HCPCS: 80053; 82728; 85025; 96372

== ENCOUNTER → 2019-10-28 | Outpatient (CLI) | payer MEDICARE, BC ==
[~2019-10-28] MED LIST changes: +AMLO10TA7 PO; +ASPI-586 PO; +ATOR20TA66 PO; +CALC-654 PO; +CHOL200012 PO; +DOCU-143 PO; +DOCU-238 PO; +FLUO20CA46 PO; +METO50TA7 PO; +MULT-178 PO; +WARF4TAB PO; +WARF4TAB70 PO
--- NOTE | 2019-10-30 10:53 | Diagnostic Imaging Report ---
INDICATION: 79-year-old postmenopausal female. COMPARISON: 10/11/2017 FINDINGS: AP Spine L1-L4: [BMD (g/cm2): 1.062] [T-Score: -1.1] [Z-Score: 0.1] [BMD Previous: 1.105] [BMD % Change: -3.9] LT Hip Neck: [BMD (g/cm2): 0.816] [T-Score: -1.6] [Z-Score: 0.1] LT Hip Total: [BMD (g/cm2):0.905] [T-Score:-0.8] [Z-Score: 0.7] [BMD Previous: 0.882] [BMD % Change: -7.5] RT Hip Neck: [BMD (g/cm2):0.776] [T-Score:-1.9] [Z-Score:-0.2] RT Hip Total: [BMD (g/cm2):0.813] [T-score:-1.5] [Z-Score:0.0] [BMD Previous:0.769] [BMD % Change:0.9] *Indicates significant change from prior examination based on 95% confidence level. World Health Organization criteria for BMD interpretation classify patients as Normal (T-score at or above -1.0), Osteopenic (T-score between -1.0 and -2.5) or Osteoporotic (T-score at or below -2.5). LIMITATIONS AND MODIFICATION: None. FRACTURE RISK (FRAX SCORE): The ten year probability of (%): Major Osteoporotic Fracture: [13.8] Hip Fracture: [3.6] IMPRESSION: 1. Osteopenia (Low bone mass). 2. No significant change in bone mineral density since prior examination. 3. See below National Osteoporosis Foundation guidelines on when to potentially initiate pharmacologic therapy. Based on the National Osteoporosis Foundation Guidelines, pharmacologic treatment should be initiated in any of the following, unless clinical conditions suggest otherwise: * Any patient with prior fragility fracture of the hip or vertebrae. A spine fracture indicates 5X risk for subsequent spine fracture and 2X risk for subsequent hip fracture. * Osteoporosis (T-score <-2.5). * Postmenopausal women and men age 50 and older with low bone mass/osteopenia (T-score between -1.0 and -2.5) by DXA and 10-year major osteoporotic fracture greater than 20% or a 10-year probability of hip fracture greater than 3%. These fracture risks are supplied above in the FRAX score, if applicable. * Clinician judgement and/or patient preferences may indicate treatment for people with 10-year fracture probabilities above or below these levels. Dictated by: Dictated on workstation # [id number]
== END ==
LOC: RAD 12:07
PROVIDERS: ATTEND Nurse Practitioner Adult Health
DX: Z51.81 Encounter for therapeutic drug level monitoring (principal); M85.89 Other specified disorders of bone density and structure, multiple sites; Z78.0 Asymptomatic menopausal state; Z79.811 Long term (current) use of aromatase inhibitors
CPT/HCPCS: 77080

== ENCOUNTER 2019-11-19 08:40 | Outpatient (RCR) | payer MEDICARE, BC ==
[~2019-11-19 08:40] MED LIST changes: -CALC600T12 PO; +CALC600T14 PO
[2019-11-19] MEDS ORDERED: DENOSUMAB 60 MG/1 ML (PROLIA) CANCER CTR SQ SCH (10:30)
[2019-11-19 10:38] LABS: BASOPHILS # (AUTO) 0.1 10^3/uL (0.0-0.1); BASOPHILS % (AUTO) 1 % (0-10); EOSINOPHILS # (AUTO) 0.3 10^3/uL (0.0-0.3); EOSINOPHILS % (AUTO) 4 % (0-10); HEMATOCRIT 35 % (35-52); HEMOGLOBIN 10.6 G/DL (11.5-16.0); LYMPHOCYTES # (AUTO) 1.6 X 10^3 (1.0-4.0); LYMPHOCYTES % (AUTO) 18 % (12-44); MEAN CORPUSCULAR HEMOGLOBIN 22 PG (25-34); MEAN CORPUSCULAR HGB CONC 31 G/DL (32-36); MEAN CORPUSCULAR VOLUME 72 FL (80-99); MEAN PLATELET VOLUME 10.7 FL (7.4-10.4); MONOCYTES % (AUTO) 11 % (0-12); NEUTROPHILS # (AUTO) 6.1 X 10^3 (1.8-7.8); NEUTROPHILS % (AUTO) 67 % (42-75); PLATELET COUNT 428 10^3/uL (130-400); WHITE BLOOD COUNT 9.1 10^3/uL (4.3-11.0)
[2019-11-19 11:01] LABS: ALBUMIN 4.2 GM/DL (3.2-4.5); BILIRUBIN,TOTAL 0.5 MG/DL (0.1-1.0); CALCIUM 10.5 MG/DL (8.5-10.1); CREATININE SERUM 0.98 MG/DL (0.60-1.30); POTASSIUM 4.4 MMOL/L (3.6-5.0); TOTAL PROTEIN 7.4 GM/DL (6.4-8.2)
[2020-02-11] MEDS ORDERED: CALC1CAP21 PO (08:59)
[2020-02-11] MEDS ORDERED: ASPI-999 PO (08:59)
[2020-02-11] MEDS ORDERED: WARF4TAB70 PO (08:59)
[2020-02-11] MEDS ORDERED: METF-397 PO (10:52)
== END 2020-02-17 | disposition home or self-care (01) ==
LOC: ONC 08:40
PROVIDERS: ATTEND Internal Medicine Hematology & Oncology
DX: C50.111 Malignant neoplasm of central portion of right female breast (principal); D50.9 Iron deficiency anemia, unspecified; M85.89 Other specified disorders of bone density and structure, multiple sites; Z79.811 Long term (current) use of aromatase inhibitors
CPT/HCPCS: 80053; 85025; 96372

== ENCOUNTER 2020-02-11 09:00 | Day surgery (SDC) | payer MEDICARE, BC ==
[2020-02-11] VITALS (13 sets, daily range): BP systolic 136–200; BP diastolic 63–91
[~2020-02-11] VITALS: Ht 160 cm; Wt 82.0 kg
[2020-02-11 07:46] LABS: HEMOGLOBIN 11.9 G/DL (11.5-16.0); MEAN PLATELET VOLUME 10.9 FL (7.4-10.4); WHITE BLOOD COUNT 11.6 10^3/uL (4.3-11.0)
[2020-02-11 07:47] LABS: BILIRUBIN,URINE NEGATIVE (NEGATIVE); CLARITY,URINE CLEAR; COLOR,URINE YELLOW; GLUCOSE, URINE (UA) NEGATIVE (NEGATIVE); KETONES,URINE NEGATIVE (NEGATIVE); LEUKOCYTE ESTERASE ,URINE TRACE (NEGATIVE); NITRITE,URINE NEGATIVE (NEGATIVE); PROTEIN,URINE NEGATIVE (NEGATIVE)
[2020-02-11 07:55] LABS: BACTERIA,URINE TRACE /HPF; RBC,URINE RARE /HPF
[2020-02-11 07:56] LABS: INR 2.4 (0.8-1.4); PROTHROMBIN TIME PATIENT 26.4 SEC (12.2-14.7)
--- NOTE | 2020-02-11 07:56 | Diagnostic Imaging Report ---
INDICATION: Preop. Heart catheterization with angioplasty Upright chest shows cardiomegaly with normal vascularity. The lungs are clear. There is no effusion or pneumothorax. There are changes of prior median sternotomy and valve replacement. IMPRESSION: No acute abnormality is seen. Patient has had median sternotomy otherwise there is no change from a prior study from 10/17/2017. Dictated by: Dictated on workstation # [id number]
[2020-02-11 08:04] LABS: ALBUMIN 4.4 GM/DL (3.2-4.5); BILIRUBIN,TOTAL 0.5 MG/DL (0.1-1.0); CALCIUM 10.8 MG/DL (8.5-10.1); CREATININE SERUM 1.23 MG/DL (0.60-1.30); TOTAL PROTEIN 7.6 GM/DL (6.4-8.2)
[~2020-02-11 09:00] MED LIST changes: +ASPI-999 PO; +CALC1CAP21 PO; +HEParin (CATH LAB) 2,000 ML IV ONE; +LIDOCAINE 1% INJ 20 ML 20 ML VIAL ONE; +MIDAZOLAM 5 MG/5 ML (VERSED) VIAL ONE; +NS IV 1000 ML 1,000 ML IV SCH; +NS IV 1000 ML 1,000 ML ONE; +diphenhydrAMINE 50 MG/ML INJ (BENADRYL) ONE; +fentaNYL INJECTION 100 MCG/2 ML AMP ONE; +methylPREDNISolone 125 MG (Solu-MEDROL) VIAL ONE
--- NOTE | 2020-02-11 10:23 | NUR ---
I SPOKE WITH THE PATIENT, WENT THROUGH THE MED LIST BROUGHT FROM HOME, AND CALLED [facility], [facility], AND [facility] ORDER TO COMPLETE THIS MED REC. AMLODIPINE 10MG LAST FILLED 12/17/2019 #90 90DS BENAZEPRIL 40MG LAST FILLED 09/17/2019 #90 90DS FLUOXETINE 20MG LAST FILLED 11/28/2019 #90 90DS ATORVASTATIN 20MG LAST FILLED 12/27/2019 #90 90DS LETROZOLE 2.5MG LAST FILLED 12/05/2019 #90 90DS METOPROLOL ER SUCCINATE 50MG LAST FILLED 12/01/2019 #90 90DS PROLIA 60MG GETS 1 SHOT EVERY 6 MONTHS -PATIENT SAID SHE THINKS HER LAST SHOT WAS ABOUT 2 MONTHS AGO METFORMIN 500MG LAST FILLED 09/17/2019 #180 90DS -DIRECTIONS SAY SHE'S SUPPOSED TO TAKE BID BUT SHE TAKES IT DAILY WARFARIN 4MG LAST FILLED 12/01/2019 #135 90DS -PATIENT TAKES 1 (4MG) TAB EVERY 48 HOURS ALTERNATING WITH 2 (4MG) TABS. PATIENT SAYS THE LAST TIME WARFARIN WAS TAKEN WAS 02/08/2020 AND SHE TOOK 8MG OTC: CLARITIN CALCIUM WITH VITAMIN D MULTI-VITAMIN VITAMIN D STOOL SOFTENER ASPIRIN
[2020-02-11] MEDS ORDERED: NS IV 1000 ML 1,000 ML IV SCH (10:50)
--- NOTE | 2020-02-11 10:50 | Cardiac Procedure Note-CS/ASA ---
Pre-Procedure Note Pre-Op Procedure Note H&P Reviewed The H&P was reviewed, patient examined and no changes noted. Date H&P Reviewed: Feb 11, 2020 Time H&P Reviewed: 08:00 Conscious Sedation Pre-Proced Time 08:00 ASA Score 3 For ASA 3 and 4: Consider anesthesia and medical clearance. Also, for patients with a history of failed moderate sedation consider anesthesia. Airway Lungs Heart ASA score ASA 1: a normal healthy patient ASA 2: a patient with a mild systemic disease (mid diabetes, controlled hypertension, obesity x ASA 3: a patient with a severe systemic disease that limits activity (angina, COPD, prior Myocardial infarction) ASA 4: a patient with an incapacitating disease that is a constant threat to life (CHF, renal failure) ASA 5: a moribund patient not expected to survive 24 hrs. (ruptured aneurysm) ASA 6: a declared brain- patient whose organs are being harvested. For emergent operations, add the letter E after the classification Mallampati Classification Grade 3 Sedation Plan Analgesia, Amnesia, Plan communicated to team members, Discussed options with patient/fam, Discussed risks with patient/fam The patient is an appropriate candidate to undergo the planned procedure, sedation, and anesthesia. The patient immediately re-assessed prior to indication. DAVID SMITH MD Feb 11, 2020 10:50
[2020-02-11] MEDS ORDERED: METF-397 PO (10:52)
--- NOTE | 2020-02-11 10:52 | Discharge Inst-Post CATH ---
Discharge Inst-CATH/EP Problems Reviewed?: Yes Post Cardiac Cath/EP D/C Inst Follow Up/Plan Hold metformin for [address] SMITH's office in 4 weeks <b>CARDIAC CATH/EP PROCEDURE DISCHARGE INSTRUCTIONS</b> ACTIVITY * Go Home directly and rest. * Limit activity of the leg (or wrist if it was used) for 7 days including aerobics, swimming, jogging, bicycling, etc. * Restrict stair-climbing for 7 days if possible, if not, climb up with your non-cath leg, then bring together on the same step. * Avoid lifting, pushing, pulling or excessive movement of the affected extremity for 7 days. * Customary sexual activity may be resumed after 2 days-use caution not to use a position that strains or causes pain to the affected extremity. * No driving for 24 hours. * NO SMOKING. * Avoid straining for bowel movements for 7 days. * Gentle walking on level ground is allowed. * Returning to work will depend on the type of procedure and the results. Your doctor will discuss this with you. CALL YOUR DOCTOR FOR ANY OF THE FOLLOWING: *If bleeding from the puncture site occurs- Apply gentle pressure to site with clean cloth and call your doctor or EMS. * If a knot or lump forms under the skin, increases in size, or causes pain. * If bruising appears to be worsening or moving further down your leg instead of disappearing. * Temperature above 101 F. CARE OF YOUR GROIN INCISION; * Bruising or purple discoloration of the skin near the puncture site is common. * You may shower only, no bathtub bathing for 5 days. Be careful to avoid slipping as your leg may feel stiff. * If a closure device was used on your femoral artery, please see the attached guide regarding care of the device and your leg. * Leave dressing on FOR 24 hours. CARE OF YOUR WRIST INCISION; * Bruising or purple discoloration of the skin near the puncture site is common. * You may shower. * DO NOT submerge wrist. * Leave dressing on FOR 24 hours. DAVID SMITH MD Feb 11, 2020 10:52
--- NOTE | 2020-02-11 10:58 | Cardiac Cath Report ---
Cardiac Cath Report Physician (s)/Photo Mask Cleaner (s) Physician DAVID SMITH MD Pre-Procedure Diagnosis Pre-Procedure Diagnosis: coronary artery disease Post-Procedure Note Procedure Start Date: Feb 11, 2020 Name of Procedure: Coronary angiogram Vein graft angiogram GAGNON angiogram Findings/Procedure Note PROCEDURE NOTE: 79-year-old lady with history of mitral valve placement, coronary artery disease CABG 2, had an abnormal stress test with anterior wall ischemia, scheduled for cardiac catheterization possible PTCA After explaining the procedure to the patient, all pros and cons were explained, all questions were answered. The patient signed the consent and then she was placed on the cardiac catheterization laboratory. Groin was prepped SL fashion local anesthesia was used. Sheath placed in the artery. Renae right and left catheter were used to access the coronary system.Vein Graft evaluated. GAGNON evaluated. At the end of the procedure the sheath was removed. Closure device was used FINDINGS: Hemodynamics LV was not measured, no crossing of the valve Aorta 164/63 mean of 60 to ANATOMY: Left Main has mild disease nonobstructive disease Left Anterior Descending is totally occluded at the midportion, GAGNON to LAD is patent, small vessel disease beyond the anastomosis point Left Circumflex is moderate in size with moderate stenosis at the midportion nonobstructive disease Right Coronory Artery is dominant artery, occluded at the midportion, patent vein graft to the right PDA with excellent flow distally GAGNON to LAD is patent with excellent flow distally, the LAD itself has diffuse small vessel disease Vein Graft to the right PDA is patent with excellent flow distally Fluoroscopy showed prosthetic valve in the mitral position, ring on the tricuspid valve position CONCLUSION: 1. Severe [place] coronary artery disease with total occlusion of the LAD and the right coronary artery, corrected with patent GAGNON to LAD and patent vein graft to the right PDA 2. Moderate stenosis in the mid circumflex artery, and obstructive 3. Prostatic valve in the mitral position, pericardial valve with the struts 4. Ring noted around the tricuspid position secondary to the previous annuloplasty DISCUSSION AND RECOMMENDATION: Continue to maximize medical therapy, no intervention is warranted Anesthesia Type: Conscious Sedation Estimated blood loss (mL): 25 ml Contrast Amount: 72 ml Total Radiation Dose: 465 mGy Post-Procedure Diagnosis Post-operative diagnosis: Coronary artery disease Hypertension Hyperlipidemia Mitral valve replacement DAVID SMITH MD Feb 11, 2020 10:58
[2020-02-11] MEDS ORDERED: PATIENT MAY USE OWN MEDS, ALL PO SCH (11:00)
== END 2020-02-11 17:15 | disposition home or self-care (01) ==
LOC: CATH 09:00 → SDC 10:53 → CATH 17:15
PROVIDERS: ATTEND Internal Medicine Cardiovascular Disease
DX: I25.10 Atherosclerotic heart disease of native coronary artery without angina pectoris (principal); E78.5 Hyperlipidemia, unspecified; E11.9 Type 2 diabetes mellitus without complications; F32.9 Major depressive disorder, single episode, unspecified; Z87.19 Personal history of other diseases of the digestive system; I11.9 Hypertensive heart disease without heart failure; E78.00 Pure hypercholesterolemia, unspecified; I08.1 Rheumatic disorders of both mitral and tricuspid valves; I65.23 Occlusion and stenosis of bilateral carotid arteries; I48.0 Paroxysmal atrial fibrillation; Z96.653 Presence of artificial knee joint, bilateral; Z79.01 Long term (current) use of anticoagulants; Z95.2 Presence of prosthetic heart valve; Z79.84 Long term (current) use of oral hypoglycemic drugs; Z79.899 Other long term (current) drug therapy; Z79.82 Long term (current) use of aspirin; Z95.1 Presence of aortocoronary bypass graft; Z85.3 Personal history of malignant neoplasm of breast; Z88.0 Allergy status to penicillin
CPT/HCPCS: 71045; 80053; 81000; 85027; 85610; 85730; 87081; 93455; C1760; C1894; 36415

== ENCOUNTER 2020-07-14 10:26 | Outpatient (RCR) | payer MEDICARE, BC ==
[~2020-07-14 10:26] MED LIST changes: +AMLO-251 PO; -AMLO10TA7 PO; -CALC600T14 PO; +CALC600T91 PO; +CLN.1T PO; -CLON0.1T PO; -DOCU-238 PO; +DOCU-241 PO; -HEParin (CATH LAB) 2,000 ML IV ONE; -LIDOCAINE 1% INJ 20 ML 20 ML VIAL ONE; -MIDAZOLAM 5 MG/5 ML (VERSED) VIAL ONE; -NS IV 1000 ML 1,000 ML IV SCH; -NS IV 1000 ML 1,000 ML ONE; +WARF4TAB3 PO; -WARF4TAB70 PO; -diphenhydrAMINE 50 MG/ML INJ (BENADRYL) ONE; -fentaNYL INJECTION 100 MCG/2 ML AMP ONE; -methylPREDNISolone 125 MG (Solu-MEDROL) VIAL ONE
[2020-07-14 10:39] LABS: BASOPHILS # (AUTO) 0.1 10^3/uL (0.0-0.1); BASOPHILS % (AUTO) 1 % (0-10); EOSINOPHILS # (AUTO) 0.3 10^3/uL (0.0-0.3); EOSINOPHILS % (AUTO) 3 % (0-10); HEMATOCRIT 42 % (35-52); HEMOGLOBIN 12.5 g/dL (11.5-16.0); LYMPHOCYTES # (AUTO) 1.9 10^3/uL (1.0-4.0); LYMPHOCYTES % (AUTO) 22 % (12-44); MEAN CORPUSCULAR HEMOGLOBIN 25 pg (25-34); MEAN CORPUSCULAR HGB CONC 30 g/dL (32-36); MEAN CORPUSCULAR VOLUME 83 fL (80-99); MEAN PLATELET VOLUME 10.7 fL (9.0-12.2); MONOCYTES # (AUTO) 0.9 10^3/uL (0.0-1.0); MONOCYTES % (AUTO) 11 % (0-12); NEUTROPHILS # (AUTO) 5.4 10^3/uL (1.8-7.8); NEUTROPHILS % (AUTO) 63 % (42-75); PLATELET COUNT 394 10^3/uL (130-400); WHITE BLOOD COUNT 8.5 10^3/uL (4.3-11.0)
[2020-07-14 10:58] LABS: ALBUMIN 4.3 GM/DL (3.2-4.5); BILIRUBIN,TOTAL 0.6 MG/DL (0.1-1.0); CALCIUM 10.7 MG/DL (8.5-10.1); CREATININE SERUM 1.3 MG/DL (0.60-1.30); POTASSIUM 3.8 MMOL/L (3.6-5.0); TOTAL PROTEIN 7.6 GM/DL (6.4-8.2)
[2020-07-14] MEDS ORDERED: DENOSUMAB 60 MG/1 ML (PROLIA) CANCER CTR SQ SCH (13:00)
== END 2020-10-12 | disposition home or self-care (01) ==
LOC: ONC 10:26
PROVIDERS: ATTEND Internal Medicine Hematology & Oncology
DX: C50.111 Malignant neoplasm of central portion of right female breast (principal); D50.9 Iron deficiency anemia, unspecified; M85.89 Other specified disorders of bone density and structure, multiple sites; I10 Essential (primary) hypertension; M85.80 Other specified disorders of bone density and structure, unspecified site; I48.91 Unspecified atrial fibrillation; Z95.1 Presence of aortocoronary bypass graft; Z79.811 Long term (current) use of aromatase inhibitors; Z95.4 Presence of other heart-valve replacement; Z92.3 Personal history of irradiation
CPT/HCPCS: 80053; 82306; 82728; 85025; 96372; G0463

== ENCOUNTER 2021-01-11 10:47 | Outpatient (RCR) | payer MEDICARE, BC ==
[~2021-01-11 10:47] MED LIST changes: +DENOSUMAB 60 MG/1 ML (PROLIA) CANCER CTR SQ SCH; -DOCU-241 PO; +DOCU-26 PO
[2021-01-11 11:01] LABS: BASOPHILS # (AUTO) 0.1 10^3/uL (0.0-0.1); BASOPHILS % (AUTO) 1 % (0-10); EOSINOPHILS # (AUTO) 0.4 10^3/uL (0.0-0.3); EOSINOPHILS % (AUTO) 4 % (0-10); HEMATOCRIT 41 % (35-52); HEMOGLOBIN 12.8 g/dL (11.5-16.0); LYMPHOCYTES # (AUTO) 1.9 10^3/uL (1.0-4.0); LYMPHOCYTES % (AUTO) 20 % (12-44); MEAN CORPUSCULAR HEMOGLOBIN 26 pg (25-34); MEAN CORPUSCULAR HGB CONC 31 g/dL (32-36); MEAN CORPUSCULAR VOLUME 85 fL (80-99); MEAN PLATELET VOLUME 10.2 fL (9.0-12.2); MONOCYTES # (AUTO) 1.1 10^3/uL (0.0-1.0); MONOCYTES % (AUTO) 12 % (0-12); NEUTROPHILS % (AUTO) 63 % (42-75); PLATELET COUNT 369 10^3/uL (130-400); WHITE BLOOD COUNT 9.6 10^3/uL (4.3-11.0)
[2021-01-11 11:18] LABS: BILIRUBIN,TOTAL 0.6 MG/DL (0.1-1.0); CALCIUM 10.6 MG/DL (8.5-10.1); CREATININE SERUM 1.07 MG/DL (0.60-1.30); POTASSIUM 4.2 MMOL/L (3.6-5.0); TOTAL PROTEIN 7.6 GM/DL (6.4-8.2)
== END 2021-04-11 | disposition home or self-care (01) ==
LOC: ONC 10:47
PROVIDERS: ATTEND Internal Medicine Hematology & Oncology
DX: C50.111 Malignant neoplasm of central portion of right female breast (principal); D50.9 Iron deficiency anemia, unspecified; M85.89 Other specified disorders of bone density and structure, multiple sites; M85.80 Other specified disorders of bone density and structure, unspecified site; I48.91 Unspecified atrial fibrillation; I25.10 Atherosclerotic heart disease of native coronary artery without angina pectoris; E78.01 Familial hypercholesterolemia; E11.9 Type 2 diabetes mellitus without complications; I27.20 Pulmonary hypertension, unspecified; J45.909 Unspecified asthma, uncomplicated; Z95.1 Presence of aortocoronary bypass graft; Z79.811 Long term (current) use of aromatase inhibitors; Z95.4 Presence of other heart-valve replacement; Z92.3 Personal history of irradiation; Z98.890 Other specified postprocedural states; Z85.3 Personal history of malignant neoplasm of breast; Z90.12 Acquired absence of left breast and nipple; Z92.21 Personal history of antineoplastic chemotherapy
CPT/HCPCS: 80053; 82728; 85025; 96372; G0463

== ENCOUNTER → 2021-03-08 | Outpatient (CLI) | payer MEDICARE, BC ==
[~2021-03-08] MED LIST changes: -DENOSUMAB 60 MG/1 ML (PROLIA) CANCER CTR SQ SCH
== END ==
LOC: CARD 09:00
PROVIDERS: ATTEND Internal Medicine Cardiovascular Disease
DX: I08.0 Rheumatic disorders of both mitral and aortic valves (principal); I11.9 Hypertensive heart disease without heart failure; I37.1 Nonrheumatic pulmonary valve insufficiency; I25.10 Atherosclerotic heart disease of native coronary artery without angina pectoris; Z95.4 Presence of other heart-valve replacement
CPT/HCPCS: 93306

== ENCOUNTER → 2021-11-01 | Outpatient (CLI) | payer MEDICARE, BC ==
[~2021-11-01] MED LIST changes: -BENA40TA5 PO; +BENA40TA84 PO; -FLUO20CA46 PO; +FLUO20CA48 PO
--- NOTE | 2021-11-01 15:53 | Diagnostic Imaging Report ---
INDICATION: Postmenopausal screening COMPARISON: 10/28/2019 FINDINGS: AP Spine L1-L4: [BMD (g/cm2): 1.074] [T-Score: -1.1] [Z-Score: 0.2] [BMD Previous: 1.066] [BMD % Change: 0.8] LT Hip Neck: [BMD (g/cm2): 0.839] [T-Score: -1.4] [Z-Score: 0.4] LT Hip Total: [BMD (g/cm2):0.909] [T-Score:-0.8] [Z-Score: 0.8] [BMD Previous: 0.905] [BMD % Change: 0.4] RT Hip Neck: [BMD (g/cm2):0.796] [T-Score:-1.7] [Z-Score:0.1] RT Hip Total: [BMD (g/cm2):0.841] [T-score:-1.3] [Z-Score:0.3] [BMD Previous:0.813] [BMD % Change:3.4] *Indicates significant change from prior examination based on 95% confidence level. World Health Organization criteria for BMD interpretation classify patients as Normal (T-score at or above -1.0), Osteopenic (T-score between -1.0 and -2.5) or Osteoporotic (T-score at or below -2.5). LIMITATIONS AND MODIFICATION: None. FRACTURE RISK (FRAX SCORE): The ten year probability of (%): Major Osteoporotic Fracture: [14.0] Hip Fracture: [3.6] IMPRESSION: 1. Osteopenia (Low bone mass). 2. No significant change in bone mineral density since prior examination. 3. See below National Osteoporosis Foundation guidelines on when to potentially initiate pharmacologic therapy. Based on the National Osteoporosis Foundation Guidelines, pharmacologic treatment should be initiated in any of the following, unless clinical conditions suggest otherwise: * Any patient with prior fragility fracture of the hip or vertebrae. A spine fracture indicates 5X risk for subsequent spine fracture and 2X risk for subsequent hip fracture. * Osteoporosis (T-score <-2.5). * Postmenopausal women and men age 50 and older with low bone mass/osteopenia (T-score between -1.0 and -2.5) by DXA and 10-year major osteoporotic fracture greater than 20% or a 10-year probability of hip fracture greater than 3%. These fracture risks are supplied above in the FRAX score, if applicable. * Clinician judgement and/or patient preferences may indicate treatment for people with 10-year fracture probabilities above or below these levels. Dictated by: Dictated on workstation # [id number]
== END ==
LOC: RAD 13:00
PROVIDERS: ATTEND Nurse Practitioner Adult Health
DX: C50.111 Malignant neoplasm of central portion of right female breast (principal); M85.80 Other specified disorders of bone density and structure, unspecified site; Z79.811 Long term (current) use of aromatase inhibitors; Z85.3 Personal history of malignant neoplasm of breast; Z78.0 Asymptomatic menopausal state
CPT/HCPCS: 77080

== ENCOUNTER → 2023-01-16 | Outpatient (CLI) | payer MEDICARE, BC ==
[~2023-01-16] MED LIST changes: +ALBU8.5H6 IH; -RT-ALBUINH IH
== END ==
LOC: CARD 12:22
PROVIDERS: ATTEND Physician Assistant
DX: I08.3 Combined rheumatic disorders of mitral, aortic and tricuspid valves (principal); I10 Essential (primary) hypertension; I25.10 Atherosclerotic heart disease of native coronary artery without angina pectoris
CPT/HCPCS: 93306

== ENCOUNTER → 2023-03-07 | Outpatient (CLI) | payer MEDICARE, BC ==
[~2023-03-07] MED LIST changes: +CATHETER FLUSH 10 ML SYR IVP PRN; +REGADENOSON 0.4 MG/5 ML SYR IV ONE
[2023-03-07 13:08] VITALS: BP 176/81
--- NOTE | 2023-03-07 14:52 | Cardiology Stress Test Report ---
Stress Test Report Date of Procedure/Referring: Date of Procedure: Mar 07, 2023 PCP Jean Ferreira MD Admitting Physician Admitting Physician: Attending Physician: Leticia Potter Baseline Heart Rate: 67 Baseline Blood Pressure: Blood Pressure Systolic: 176 Blood Pressure Diastolic: 81 Baseline Vitals Vital Signs Date Time Temp Pulse Resp B/P (MAP) Pulse Ox O2 Delivery O2 Flow Rate FiO2 03/07/23 13:08 67 176/81 (112) Baseline EKG: Baseline EKG: NSR Summary After explaining the procedure to the patient, she signed a consent and then brought to the stress nuclear laboratory. Patient received 0.4 mg Lexiscan for stress test, ECG, heart rate and blood pressure were monitored continuously. Resting and stress dose of radio tracer were injected, imaging was acquired and reviewed in short axis, horizontal long axis and vertical long axis views. TID: 1.02 SSS: 7 SDS: 2 EF: 67 Patient tolerated Lexiscan well Baseline twelve-lead EKG with [address] depression in lead II, III and aVF persisted during test Reversible ischemia with breast attenuation involving the whole anterior wall and anterolateral wall Normal left ventricular size, ejection fraction 67% Copy Copies To 1: JEAN FERREIRA MD, BASHAR J MD Mar 07, 2023 14:52
== END ==
LOC: CARD 11:49
PROVIDERS: ATTEND Physician Assistant
DX: I10 Essential (primary) hypertension (principal); I25.10 Atherosclerotic heart disease of native coronary artery without angina pectoris
CPT/HCPCS: 78452; 93017; A9502